=== PATIENT | male | born 1945 | race Caucasian/White ===

== ENCOUNTER 2017-07-08 17:40 | Inpatient (IN) ==
--- NOTE | 2017-07-08 18:16 | Emergency Department Note ---
IJanusz Rolonda, am scribing for, and in the presence of, Ely Ramírez DO 18: 08. IDarrell Debra, DO, personally performed the services described in this documentation, ascribed by Lashell Boudreaux in my presence, and it is both accurate and complete 816 . Arrival - Arrival Chief Complaint: Chest Pain Stated Complaint: chest pain ED Nursing Triage Note: c/o chest pain. Patient states he gets sob when he walks. He states he was working this morning and his chest started hurting. He took 3 Nitros that helped with the chest pain. Patient states his chest is hurting a little bit right now. Patient states his arms get heavy like. Patient denies any diaphoresis. Mode of Arrival: Ambulatory Limitations: No Limitations Source: Patient, Old Records Reviewed, RN Notes Reviewed Time Seen by Provider: 07/08/17 17:53 - History of Present Illness HPI Narrative: Pt is a 72 y/o male who presents to the ED for further evaluation of CP with an onset of 0100 today. Pt has a PMHx of [place], HTN, CAD, CVA and Stents x2. pt states that he was at work this morning when the CP developed. He states that the pain was 5/10 which has now gotten better and is a 3/10. Pt states that he took 3 NTG with relief. He confirms SOB with exertion and vertigo but denies N/ V and radiating pain. No other complaint/pain in ED. Onset (ago): hour(s) Consistency: constant Severity: mild Severity scale (1-10): 3 Allergies/Adverse Reactions: Allergies Allergy/AdvReac Type Severity Reaction Status Date / Time butorphanol [From Stadol] Allergy Unknown SHORTNESS Verified 07/08/17 17:47 OF BREATH Home Medications: Home Medications Medication Instructions Recorded Confirmed Type Atorvastatin [Lipitor] 40 mg PO BEDTIME 09/12/15 05/20/16 History Lisinopril 20 mg PO DAILY 09/12/15 05/20/16 History Nitroglycerin Sl Tab [Nitrostat] 0.4 mg SL Q5M PRN 09/12/15 05/20/16 History Clopidogrel [Plavix] 75 mg PO DAILY tablet 02/22/16 05/20/16 Rx Metoprolol Succinate Xl [Toprol Xl] 50 mg PO DAILY #30 tablet 02/22/16 05/20/16 Rx Sertraline [Zoloft] 25 mg PO BEDTIME 05/20/16 05/20/16 History Isosorbide Mononitrate [Imdur] 30 mg PO DAILY #30 tablet 05/25/16 Rx Nitroglycerin Sl Tab [Nitrostat] 0.4 mg SL Q5M PRN #25 tablet 05/25/16 Rx Rivaroxaban [Xarelto] 20 mg PO DAILY W/BREAKFAST #30 05/25/16 Rx tablet Review of System - Review of System 12 point system: reviewed and no additional remarkable complaints except as stated - Review of System Constitutional: Absent: chills Eyes: Absent: discharge Head/Ears/Nose/Throat: Absent: earache Respiratory: Present: respiratory distress (SOB). Absent: cough Cardiovascular: Present: chest pain Gastrointestinal: Absent: abdominal pain Genitourinary male: Absent: dysuria Musculoskeletal: Absent: arm pain, back pain Skin: Absent: rash Neurological: Present: vertigo. Absent: headache Psychiatric: Absent: anxiety Endocrine: Absent: cold intolerance Hematological/Lymphatic: Absent: easy bleeding Allergic/Immunologic: Absent: facial swelling Medical,Surgical,& Family Hx - Medical History Cardio: History of: CAD, Hypertension, [place] Neurology: History of: Cerebrovascular Accident No history of: Seizures Endocrine: History of: Dyslipidemia Genitourinary: History of: Kidney Stones, Prostate Problems (Prostate CA), Genitourinary Cancer (Prostate CA) Other: History of: Anaphylaxis, Cancer - Surgical History Cardiac Surgeries: Sugical HX of: Cardiac Catheterization, Cardiac Surgery ( Stents x2) Thoracic Surgeries: Surgical HX of;: Lithotripsy Patient denies;: Lobectomy Abdominal Surgeries: Surgical HX of: Appendectomy, Cholecystectomy Reproductive Surgeries: Surgical HX of;: Prostate Surgery (Biopsy) - Family History Family History: Reports;: Family Diabetes, Family Heart Disease - Social History Smoking Status: Former smoker Frequency of Alcohol Use: None Type of Drug Use: None Exam Vital Signs: Vital Signs Temperature 97.6 F 07/08/17 18:31 Pulse Rate 84 07/08/17 18:31 Respiratory Rate 18 07/08/17 18:31 Blood Pressure 158/90 07/08/17 18:31 O2 Sat by Pulse Oximetry 98 07/08/17 17:42 - General General appearance: alert, in no apparent distress, anxious (mildly) - Head Head exam: Present: atraumatic, normocephalic - Eye Eye exam: Present: PERRL, EOMI - ENT ENT exam: Present: mucous membranes moist. Absent: mucous membranes dry - Neck Neck exam: Present: full ROM. Absent: tenderness - Chest Chest inspection: Present: symmetric chest wall rise. Absent: tenderness - Respiratory Respiratory exam: Present: normal lung sounds bilaterally. Absent: wheezes - Cardiovascular Cardiovascular exam: Present: regular rate, normal rhythm, normal heart sounds. Absent: bradycardia - Abdominal Exam Abdominal exam: Present: soft, distention, normal bowel sounds. Absent: tenderness - Extremities Exam Extremities exam: Present: full ROM. Absent: tenderness - Back Exam Back exam: Present: full ROM. Absent: tenderness - Neurological Exam Neurological exam: Present: alert, oriented X3, CN II-XII intact - Psychiatric Psychiatric exam: Present: normal affect, normal mood - Skin Skin exam: Present: warm, dry, intact, normal color. Absent: rash Course Course Narrative: spoke with Dr Javier who will cath patient tonight. pt notified and cath team called in . Results - Labs CBC & BMP: 07/08/17 18:19 07/08/17 18:19 Lab Results: I have reviewed the patients labs Labs: Laboratory Tests 07/08/17 18:19 WBC 7.7 RBC 3.92 Hgb 12.5 L Hct 35.8 L MCV 91.3 Plt Count 156 Neut % (Auto) 79.5 H Lymph % (Auto) 11.6 L Lymph # (Auto) 0.9 L Laboratory Tests 07/08/17 07/08/17 07/08/17 18:19 18:19 18:19 INR 1.0 PT Patient/Control Mix 10.7 Circ Anticoag PTT 26.8 Sodium 143 Potassium 3.4 L Chloride 111 H Carbon Dioxide 24 BUN 14 Creatinine 1.50 H GFR Calculation 60 Glucose 154 H Calcium 8.3 L AST 23 CK-MB (CK-2) 10.7 H CK and CKMB Interp 3.5 Troponin I 3.460 H B-Natriuretic Peptide 158 H Total Protein 6.2 L - EKG EKG results: interpreted by ERMD - Impressions lbb which was present last EKG, changes noted on leads v4, 5 and 6. - Diagnostic Findings Procedure: Chest x-ray: report reviewed by me (Stable portable chest.) Disposition Clinical Impression: Chest pain Case discussed with: patient, patient's family Disposition: Still a Patient Condition: Stable Additional Instructions: patient will be going to the label rewinder Time of Disposition: 19:13
[2017-07-08 18:26] LABS: Basophils % 0.1 % (0.0-0.8); Eosinophils % 0.3 % (0.00-10.9); Hematocrit 35.8 VOL% (42.0-52.0); Hemoglobin 12.5 GM/DL (14.0-18.0); Immature Granulocytes % 0.3 %; Immature Granulocytes Absolute 0.02 #; Lymphocytes # 0.9 10*3/uL (1.4-4.0); Lymphocytes % 11.6 % (21.2-54.2); Mean Corpuscular HGB Conc 34.9 GM/DL (32-36); Mean Corpuscular Hemoglobin 32 PG (27-34); Mean Corpuscular Volume 91.3 FL (87-102); Mean Platelet Volume 9.8 FL (9.6-12.0); Monocytes # 0.6 10*3/uL (0.11-0.8); Monocytes % 8.2 % (1.7-12.7); Neutrophils # 6.1 10*3/uL (1.4-7.4); Neutrophils % 79.5 % (38.7-73.9); Platelet Count 156 T/CUMM (130-400); Red Blood Count 3.92 MC/CUMM (3.8-5.5); White Blood Count 7.7 T/CUMM (4-12)
--- NOTE | 2017-07-08 18:40 | XRay Report ---
History is chest pain Comparison 11/04/2016 Mediastinal and hilar contours unchanged Small calcified granulomas again seen without congestive failure or confluent infiltrates seen Impression: Stable portable chest PROCEDURE INTERPRETED AT [facility] DEPARTMENT OF RADIOLOGY Final Report Signed by: Dr. Tiffanie Stearns
[2017-07-08 18:41] LABS: PT Patient Result 10.7 SECS; Partial Thromboplastin Time 26.8 SECS (0-40)
[2017-07-08 18:53] LABS: Albumin 3.6 G/DL (3.4-5.0); Bilirubin,Total 0.4 MG/DL (0.2-1.0); CKMB % 3.5 %; Calcium 8.3 MG/DL (8.5-10.1); Potassium 3.4 MMOL/L (3.5-5.1); Total Protein 6.2 G/DL (6.4-8.3)
[2017-07-08 18:57] LABS: Troponin I Only 3.46 NG/ML (0.00-0.045)
[2017-07-08] MEDS ORDERED: ONDANSETRON 4 MG/2 ML VIAL ONE (19:01)
[2017-07-08] MEDS ORDERED: ENOXAPARIN 100 MG/ML SYRINGE SUBCUT ONE (19:01)
[2017-07-08] MEDS ORDERED: MORPHINE 2 MG/1 ML SYRINGE ONE (19:02)
[2017-07-08] MEDS ORDERED: NITROGLYCERIN 2% OINT 1 INCH/GM PACK TOP ONE (19:02)
[2017-07-08] MEDS ORDERED: METOPROLOL TARTRATE 5 MG/5 ML VIAL IV ONE (19:02)
[2017-07-08] MEDS ORDERED: SODIUM CHLORIDE 0.9% 1,000 ML IV ONE (19:10)
[2017-07-08] MEDS ORDERED: CLOPIDOGREL 300 MG TABLET ONE (19:34)
--- NOTE | 2017-07-08 19:48 | Cardiology History & Physical ---
Assessment and Plan - Time spent with patient Time spent with patient: Greater than 30 minutes (Examination discussion documentation chart review film review) (1) Non-ST elevation myocardial infarction (NSTEMI) Status: Acute Current Visit: Yes (2) Post-infarction angina Status: Acute Current Visit: Yes (3) Paroxysmal atrial fibrillation Status: Resolved Current Visit: Yes (4) Anemia Status: Acute Current Visit: Yes (5) Hypokalemia Status: Acute Current Visit: Yes (6) Hypertension Status: Chronic Current Visit: Yes Qualifiers: Hypertension type: essential hypertension Qualified Code(s): I10 - Essential (primary) hypertension (7) Prostate cancer Status: Chronic Current Visit: No (8) Anxiety Status: Chronic Current Visit: No (9) Coronary artery disease Status: Chronic Current Visit: No (10) Dyslipidemia Status: Chronic Current Visit: No (11) History of coronary artery stent placement Status: Chronic Current Visit: No History of Present Illness Chief complaint: Chest pain History of present illness: Mr. Burr is a 72 year old male with known coronary artery disease and previous PCI of the RCA has an abnormal takeoff. He also has a history of paroxysmal atrial fibrillation. He is currently in normal sinus rhythm with his chronic left bundle branch block the patient has been experiencing progressive dyspnea and having to stop after a few moments over the last several weeks today he began having substernal chest discomfort at 1 PM. He took some nitro and it went away and came it was as much as 7 out of 10 at that time and it came back to 2 out of 10 and subsequent came to the emergency room to be evaluated he was found to have a creatinine of 1.5 and elevated cardiac biomarkers consistent with myocardial ischemia. He has a chronic left bundle branch block that does not seem significantly changed. Despite nitrates and morphine he continued to have stuttering chest discomfort. When I evaluated the emergency room he was actually pain-free but this was only momentarily after some morphine injection. The patient has known coronary disease and is been cathed here in intervened with RCA he also has intervention at [facility] in the past I do not have those films. The patient has been on clopidogrel therapy but it is unclear if he has been compliant with this he has a significant amount of difficulty keeping up with his medications. I reviewed a medication list in the emergency room has many marked reason changes. He has not been on anticoagulation for his atrial fibrillation was on Xarelto for a period. I discussed with the patient about left heart catheterization selective coronary angiography and possible percutaneous intervention with his , son and [id number] present. He wishes to proceed. The [employer] staff has been called back for urgent left heart catheterization for post infarct angina. Home Medications Medication Instructions Recorded Confirmed Type Atorvastatin [Lipitor] 40 mg PO BEDTIME 09/12/15 05/20/16 History Lisinopril 20 mg PO DAILY 09/12/15 05/20/16 History Nitroglycerin Sl Tab [Nitrostat] 0.4 mg SL Q5M PRN 09/12/15 05/20/16 History Clopidogrel [Plavix] 75 mg PO DAILY tablet 02/22/16 05/20/16 Rx Metoprolol Succinate Xl [Toprol Xl] 50 mg PO DAILY #30 tablet 02/22/16 05/20/16 Rx Sertraline [Zoloft] 25 mg PO BEDTIME 05/20/16 05/20/16 History Isosorbide Mononitrate [Imdur] 30 mg PO DAILY #30 tablet 05/25/16 Rx Nitroglycerin Sl Tab [Nitrostat] 0.4 mg SL Q5M PRN #25 tablet 05/25/16 Rx Rivaroxaban [Xarelto] 20 mg PO DAILY W/BREAKFAST #30 05/25/16 Rx tablet Allergies Allergy/AdvReac Type Severity Reaction Status Date / Time butorphanol [From Stadol] Allergy Unknown SHORTNESS Verified 07/08/17 17:47 OF BREATH - Constitutional Constitutional: Absent: anorexia, chills - EENT Eyes: Absent: diplopia Ears: Absent: decreased hearing Nose, mouth and throat: Absent: dysphagia, epistaxis, nasal congestion - Cardiovascular Cardiovascular: Present: chest pain at rest, chest pain with activity, dyspnea, dyspnea on exertion. Absent: edema, orthopnea, palpitations - Respiratory Respiratory: Present: dyspnea, dyspnea on exertion - Gastrointestinal Gastrointestinal: Absent: bloating, change in bowel habits, dyspepsia, dysphagia - Genitourinary Genitourinary: Absent: difficulty urinating, hematuria - Musculoskeletal Musculoskeletal: Present: back pain, muscle weakness, myalgias. Absent: arthralgias - Neurological Neurological: Absent: abnormal gait, abnormal speech - Psychiatric Psychiatric: Present: anxiety. Absent: depression - Endocrine Endocrine: Absent: cold intolerance, heat intolerance - Hematologic/Lymphatic Hematologic/Lymphatic: Absent: easy bleeding, easy bruising Medical,Surgical,& Family Hx - Medical History Cardio: History of: Cardiac Dysrhythmia (Paroxysmal atrial fibrillation), CAD, Hypertension, [place] Psychological: History of: Anxiety Disorders Neurology: History of: Cerebrovascular Accident No history of: Seizures Endocrine: History of: Dyslipidemia Genitourinary: History of: Kidney Stones, Prostate Problems (Prostate CA), Genitourinary Cancer (Prostate CA) Other: History of: Anaphylaxis, Cancer - Surgical History Cardiac Surgeries: Sugical HX of: Cardiac Catheterization, Cardiac Surgery ( Stents x2) Thoracic Surgeries: Surgical HX of;: Lithotripsy Patient denies;: Lobectomy Abdominal Surgeries: Surgical HX of: Appendectomy, Cholecystectomy Reproductive Surgeries: Surgical HX of;: Prostate Surgery (Biopsy) - Family History Family History: Reports;: Family Diabetes, Family Heart Disease - Social History Smoking Status: Former smoker Frequency of Alcohol Use: None Type of Drug Use: None Marital Status: Lives With:: Spouse Functional capacity: independent ambulation Cardiology Physical Exam - Constitutional Vitals: Vital Signs Temp Pulse Resp BP Pulse Ox 97.6 F 84 18 158/90 98 07/08/17 18:31 07/08/17 18:31 07/08/17 18:31 07/08/17 18:31 07/08/17 17:42 Intake and Output 07/08/17 07/08/17 07/08/17 07:59 15:59 23:59 Other: Weight 102.058 kg Patient Weight 07/08/17 23:59 Weight 102.058 kg General appearance: normal weight - Head Head exam: Present: normal inspection - Eye Eye exam: Present: EOMI Pupils: Present: [place] - ENT ENT exam: Present: normal exam - Neck Neck exam: Present: normal inspection - Respiratory Respiratory exam: Present: clear to auscultation bilaterally - Cardiovascular Cardiovascular exam: Present: regular rate and rhythm (Paradoxically split second heart sound no murmur) - GI/Abdominal GI/Abdominal exam: Present: normal bowel sounds - Extremities Exam Extremities exam: Present: normal inspection - Back Exam Back exam: Present: normal inspection - Neurological Exam Neurological exam: Present: alert, oriented X3 - Psychiatric Psychiatric exam: Present: normal affect - Skin Skin exam: Present: normal color, warm Result/EKG - Labs CBC & BMP: 07/08/17 18:19 07/08/17 18:19 Labs: Laboratory Results - last 24 hr 07/08/17 07/08/17 07/08/17 18:19 18:19 18:19 WBC 7.7 RBC 3.92 Hgb 12.5 L Hct 35.8 L MCV 91.3 MCH 32 MCHC 34.9 RDW 13.0 Plt Count 156 MPV 9.8 Neut % (Auto) 79.5 H Lymph % (Auto) 11.6 L [place] % (Auto) 8.2 Eos % (Auto) 0.3 Baso % (Auto) 0.1 Neut # (Auto) 6.1 Lymph # (Auto) 0.9 L [place] # (Auto) 0.6 Eos # (Auto) 0.0 Baso # (Auto) 0.0 Immature Gran % 0.3 Nucleated RBC % 0.0 Immature Gran # 0.02 Nucleated RBCs # 0.00 Immature Plt Fraction 0.0 INR 1.0 PT Patient/Control Mix 10.7 Circ Anticoag PTT 26.8 Sodium 143 Potassium 3.4 L Chloride 111 H Carbon Dioxide 24 Anion Gap 11.4 BUN 14 Creatinine 1.50 H GFR Calculation 60 BUN/Creatinine Ratio 9.00 Glucose 154 H Calculated Osmolality 288.0 Calcium 8.3 L Total Bilirubin 0.40 AST 23 ALT 21 Alkaline Phosphatase 91 Total Creatine Kinase 308 CK-MB (CK-2) 10.7 H CK and CKMB Interp 3.5 Troponin I 3.460 H B-Natriuretic Peptide Total Protein 6.2 L Albumin 3.6 Globulin 2.6 Albumin/Globulin Ratio 1.3 07/08/17 18:19 WBC RBC Hgb Hct MCV MCH MCHC RDW Plt Count MPV Neut % (Auto) Lymph % (Auto) [place] % (Auto) Eos % (Auto) Baso % (Auto) Neut # (Auto) Lymph # (Auto) [place] # (Auto) Eos # (Auto) Baso # (Auto) Immature Gran % Nucleated RBC % Immature Gran # Nucleated RBCs # Immature Plt Fraction INR PT Patient/Control Mix Circ Anticoag PTT Sodium Potassium Chloride Carbon Dioxide Anion Gap BUN Creatinine GFR Calculation BUN/Creatinine Ratio Glucose Calculated Osmolality Calcium Total Bilirubin AST ALT Alkaline Phosphatase Total Creatine Kinase CK-MB (CK-2) CK and CKMB Interp Troponin I B-Natriuretic Peptide 158 H Total Protein Albumin Globulin Albumin/Globulin Ratio - EKG EKG results: interpreted by me (Left bundle branch block)
--- NOTE | 2017-07-08 19:51 | History and Physical Update ---
Sedation H&P Update - History and Physical H&P was reviewed, the patient examined and there: are no changes in the patients condition since last H&P was completed. - Dictation Physical: refer to H&P completed by admitting physician - Physical Exam Mental Status: alert and oriented Heart: regular rate and rhythm Lung: clear to auscultation Abdomen: within normal limits Vitals: within normal limits - Sedation Plan for Sedation: moderate Patient Consent: Procedure disscussed with patient and patinet has consented., Risks and benefits were discussed with patient,including infection,, bleeding, injury to surrounding structures, seizure, temporary nerve, Patient understands and accepts potential risks/benefits and agrees to, proceed. ASA Class: III Airway Assessment: Class III: Soft palate, base of uvula visible
[2017-07-08] MEDS ORDERED: HEPARIN/NACL 0.9% 2 UNITS/ML 1,000 ML IV ONE (19:55)
[2017-07-08] MEDS ORDERED: MIDAZOLAM 2 MG/2 ML VIAL ONE ×2 (19:55→20:47)
[2017-07-08] MEDS ORDERED: LIDOCAINE 1% 20 ML VIAL ONE (19:55)
[2017-07-08] MEDS ORDERED: fentaNYL 100 MCG/2 ML VIAL ONE (19:55)
[2017-07-08] MEDS ORDERED: METOPROLOL TARTRATE 5 MG/5 ML VIAL IV STA (19:56)
[2017-07-08] MEDS ORDERED: ONDANSETRON 4 MG/2 ML VIAL IV STA (19:56)
[2017-07-08] MEDS ORDERED: MORPHINE 2 MG/1 ML SYRINGE IV STA (19:56)
[2017-07-08] MEDS ORDERED: NITROGLYCERIN 2% OINT 1 INCH/GM PACK TOP STA (19:56)
[2017-07-08] MEDS ORDERED: ENOXAPARIN 100 MG/ML SYRINGE SUBCUT STA (19:56)
[2017-07-08] MEDS ORDERED: CLOPIDOGREL 300 MG TABLET PO STA (19:58)
[2017-07-08] MEDS ORDERED: ACETAMINOPHEN 325 MG TABLET PO PRN ×2 (20:56→22:12)
[2017-07-08] MEDS ORDERED: MORPHINE 2 MG/1 ML SYRINGE IV PRN ×2 (20:56→22:12)
[2017-07-08] MEDS ORDERED: FUROSEMIDE 40 MG/4 ML VIAL ONE (20:57)
[2017-07-08] MEDS ORDERED: POTASSIUM CHLORIDE RIDER 100 ML IV ONE (20:57)
[2017-07-08] MEDS ORDERED: ATORVASTATIN 40 MG TABLET PO SCH (21:00)
[2017-07-08] MEDS ORDERED: POTASSIUM CHLORIDE 20 MEQ TABLET PO SCH ×2 (21:00→22:30)
[2017-07-08] MEDS ORDERED: FAMOTIDINE 20 MG TABLET PO SCH (21:00)
[2017-07-08] MEDS ORDERED: POTASSIUM CHLORIDE RIDER 10 MEQ in PREMIX 1 EACH IV ONE (21:02)
[2017-07-08] MEDS ORDERED: POTASSIUM CHLORIDE 20 MEQ TABLET PO ONE ×2 (21:08)
[2017-07-08] MEDS ORDERED: ZOLPIDEM 5 MG TABLET PO PRN (21:08)
--- NOTE | 2017-07-08 21:21 | Cardiac Catheterization ---
Date of Procedure:: 07/08/17 Pre-op Diagnosis: Post infarct angina with chronic left bundle branch block and elevated troponin and chest pain Post-op diagnosis: other (Nonischemic cardiomyopathy, decompensated and coronary artery disease) Procedure: Procedures: 1. Left heart catheterization resting hemodynamics 2. Left ventriculography 3. Selective left and right coronary angiography 4. Percutaneous coronary mention of the distal LAD with a 2.5 x 12 mm Synergy drug-eluting stent 5. Right femoral iliac angiography 6. Closure right femoral arteriotomy with minx closure device After consent was taken from the patient. Taken to the catheterization lab for left heart catheterization via the femoral artery. Time out was taken and recorded. 1% lidocaine was infiltrated in the skin and subcutaneous tissue overlying the right femoral artery. Modified Seldinger technique and an 18- gauge Cook needle was used for access to the right femoral artery. An 0.35 J- wire was advanced through the needle into the central aorta under fluoroscopy. A small skin was made and a 6 Vietnamese sheath was placed over the wire. The sheath was aspirated and flushed. A JL46 was advanced over the wires in the left main coronary artery was selectively engaged. Multiple orthogonal views of the left system were obtained. The catheter was then exchanged over the wire. The sheath was aspirated and flushed. A JR4 catheter was advanced over the wire into the central aorta. The right coronary was selectively engaged and orthogonal views of the right coronary artery were obtained. The catheter was then exchanged over the wire, the sheath was aspirated and flushed. At this time an angled pigtail catheter was advanced across the aortic valve into the ventricle. Pressure measurements were obtained and a cine ventriculogram was performed in the SUN projection with 10 mL of contrast. Pullback measurements were performed. The wired music operator reviewed the films. There is no clear identifiable lesion there is diminished flow in all segments of the ventricular myocardium there was a hazy area in the distal left anterior descending artery and also moderate disease in the first diagonal. The flow seem to be more sluggish and a MAREK I- II fashioned after the hazy area in the mid LAD and it was felt that this was possibly a culprit. It clearly did not explain his decompensated cardiomyopathy. It was felt given the presentation that this was likely the nidus of the patient's pain. Therefore decision was made to stent the vessel. The patient received 100 mg of subcu Lovenox an additional 300 mg loading Plavix in the emergency room. The room set up for the intervention mode and 2 catheters were used unsuccessfully to engage the left main they were the EBU 3.5 and EBU 4 and EBU 4.5. Ultimately a simple JR4 guide was used quickly a 180 cm [employer]uld[employer] water wire was advanced into the distal LAD followed by 2.5 x 12 mm Synergy drug-eluting stent that was postdilated to nominal atmospheres. There was a stepup and stepdown on both sides of the vessel and postdilatation was not felt to be necessary. There is excellent angiographic result there was slight improvement in the patient's MAREK flow in this vessel. The wire was removed to orthogonal views were obtained. There is no apparent complication The sheath was aspirated and flushed and a right femoral and iliac angiography was performed. The access site was amenable for closure and the area was reprepped with ChloraPrep and draped with sterile towels. The Mynx closure device was used in standard technique. There was no hematoma and distal pulse were good. Total fluoroscopy time 11.1 minutes total fluoroscopy dose 798 mGy total contrast 150 cc of Omnipaque FINDINGS: LV: 115/19 LVEDP: 34 Ao:115/79 EF: Ejection fraction of 10% there is severe hypokinesis or akinesis in all distal segments. There is no mitral regurgitation there is no gradient across the valve and pullback LM: Angiographically normal LAD: This is a long vessel that reaches the apex of ventricular myocardium there is a hazy area approximately 70% in the distal vessel. There is MAREK II flow distal to this. Post PCI there is improvement in flow but still is not normal breast MAREK-3 flow but the area stented looks better. There is one view that looked like it was up to 70% the whole area was hazy. There is a first diagonal it has moderate to severe 70% stenosis throughout its course in the proximal segment. The previously deployed stents in the proximal segment are widely patent. LCx: This is a condominant vessel there is approximately 50-60% stenosis in the distal AV groove portion of the left circumflex. RCA: This vessel is dominant has a downward takeoff previously deployed stents are widely patent. There are mild luminal irregularities in the distal vessel RFA/DISHA: Right femoral iliac arteries are normal Assessment: 1. Acutely decompensated nonischemic cardiomyopathy with a left ventricular end -diastolic pressure of 34 mmHg 2. Acute coronary syndrome and chest pain with elevated troponin chronic left bundle branch block and moderate to high-grade disease in the distal LAD status post PCI that is felt not to be contributing to his cardiomyopathy and it is unclear whether this is the culprit vessel. This lesion revascularized would not explain his degree of cardiomyopathy. This is clearly nonischemic cardiomyopathy and coronary artery disease. Not ischemic cardiomyopathy. 3. History of atrial fibrillation with none documented in a significant amount of time ( several months) 4. Chronic left bundle branch block PLAN: 1. Monitored in the ICU with diuresis 2. Correct electrolyte abnormalities 3. Beta-lexis VLADIMIR inhibitor statin and dual antiplatelet therapy for minimum of 1 year 4. Consult EP for CRTD as soon as allowable 5. Discharge home with LifeVest 6. I long discussion with the patient's family and the brief discussion with him about the gravity of the situation he has a very poor prognosis if we cannot reverse his cardiomyopathy and heart failure soon. He is in guarded condition at this time. Implants: 2.5 x 12 mm Synergy drug-eluting stent Anesthesia: moderate conscious sedation Surgeon / Physician: Sarah Javier Branch Controller: none Estimated blood loss: none Specimens: none sent Condition: stable Disposition: ICU/CCU - Discharge Disposition: Still a Patient - Medications / Follow-up
[2017-07-08] MEDS ORDERED: MAGNESIUM OXIDE 400 MG TABLET PO SCH (21:30)
[2017-07-08] MEDS ORDERED: ONDANSETRON 4 MG/2 ML VIAL IV PRN (22:43)
[2017-07-09] MEDS: POTASSIUM CHLORIDE 20 MEQ TABLET PO SCH ×3 (00:06→20:31)
[2017-07-09] MEDS ORDERED: MAGNESIUM OXIDE 400 MG TABLET PO ONE (01:00)
[2017-07-09] MEDS ORDERED: FAMOTIDINE 20 MG TABLET PO ONE (01:00)
[2017-07-09] MEDS ORDERED: ATORVASTATIN 80 MG TABLET PO ONE (01:00)
[2017-07-09] MEDS: ZALEPLON 5 MG CAPSULE PO PRN ×2 (03:51→20:32)
--- NOTE | 2017-07-09 07:21 | Cardiology Progress Note ---
Assessment and Plan (1) Paroxysmal atrial fibrillation Status: Resolved Current Visit: Yes (2) Anemia Status: Acute Current Visit: Yes (3) Hypokalemia Status: Acute Current Visit: Yes (4) Hypertension Status: Chronic Current Visit: Yes Qualifiers: Hypertension type: essential hypertension Qualified Code(s): I10 - Essential (primary) hypertension (5) Prostate cancer Status: Chronic Current Visit: No (6) Anxiety Status: Chronic Current Visit: No (7) Coronary artery disease Status: Chronic Current Visit: No Qualifiers: Coronary Disease-Associated Artery/Lesion type: [place] artery [place] vs. transplanted heart: [place] heart Associated angina: with unstable angina Qualified Code(s): I25.110 - Atherosclerotic heart disease of [place] coronary artery with unstable angina pectoris (8) Dyslipidemia Status: Chronic Current Visit: No (9) History of coronary artery stent placement Status: Chronic Current Visit: No (10) Nonischemic cardiomyopathy Status: Acute Current Visit: Yes (11) Left bundle branch block (LBBB) on electrocardiogram Status: Chronic Current Visit: Yes Cardiology - PN: Subj Interval history: Mr. Burr is lying flat in the bed he has not had any more chest pain his nausea resolved. I think this was medication related. I discussed with him about the findings of his low EF. His labs are pending this morning. His ejection fraction in April in the office was 55% and now stent around 10 with distal anterior apical and inferior hypokinesis. The change in his ejection fraction seems rather abrupt to be explained by his left bundle branch block he must consider other etiologies. His LAD was stented last night and hazy area because of diminished flow in chest pain but I am not sure that this was the etiology of his chest pain. I am sure that it did not cause his low EF. He is diuresed well overnight he is slightly negative and the nurses report that his is disposed of significant amount of urine that was not measured. His labs are pending this morning I will empirically add Aldactone in anticipation that his creatinine will be hopefully no worse than it was yesterday his potassium has been low we will be cautious watching his potassium and his creatinine his creatinine was 1.5 his potassium was 3.4 admission we aggressively repleted but also aggressively diuresed. I have consulted EP, I would like if at all possible for him to get BROWNFIELD PROGRAM COORDINATOR-D as soon as possible Exam (Progress Note) - Constitutional Vitals: Period Temp Pulse Resp BP Sys/May Pulse Ox Last 24 Hr 97.4 F-98.8 F 56-84 10-18 102-158/59-90 94-98 General appearance: normal weight - Head Head exam: Present: normal inspection - Eye Eye exam: Present: EOMI Pupils: Present: [place] - Respiratory Respiratory exam: Present: clear to auscultation bilaterally - Cardiovascular Cardiovascular exam: Present: regular rate and rhythm (PMI is laterally displaced I do not hear a gallop at this time he has a paradoxically split second heart sounds times are very quiet) - GI/Abdominal GI/Abdominal exam: Present: normal bowel sounds - Extremities Exam Extremities exam: Present: other (Cath site looks good) - Back Exam Back exam: Present: normal inspection - Neurological Exam Neurological exam: Present: alert, oriented X3 - Psychiatric Psychiatric exam: Present: normal affect, normal mood - Skin Skin exam: Present: normal color, warm, dry Result/EKG - Labs CBC & BMP: 07/08/17 18:19 07/08/17 18:19 Labs: Laboratory Results - last 24 hr 07/08/17 07/08/17 07/08/17 18:19 18:19 18:19 WBC 7.7 RBC 3.92 Hgb 12.5 L Hct 35.8 L MCV 91.3 MCH 32 MCHC 34.9 RDW 13.0 Plt Count 156 MPV 9.8 Neut % (Auto) 79.5 H Lymph % (Auto) 11.6 L [place] % (Auto) 8.2 Eos % (Auto) 0.3 Baso % (Auto) 0.1 Neut # (Auto) 6.1 Lymph # (Auto) 0.9 L [place] # (Auto) 0.6 Eos # (Auto) 0.0 Baso # (Auto) 0.0 Immature Gran % 0.3 Nucleated RBC % 0.0 Immature Gran # 0.02 Nucleated RBCs # 0.00 Immature Plt Fraction 0.0 INR 1.0 PT Patient/Control Mix 10.7 Circ Anticoag PTT 26.8 Sodium 143 Potassium 3.4 L Chloride 111 H Carbon Dioxide 24 Anion Gap 11.4 BUN 14 Creatinine 1.50 H GFR Calculation 60 BUN/Creatinine Ratio 9.00 Glucose 154 H Calculated Osmolality 288.0 Calcium 8.3 L Total Bilirubin 0.40 AST 23 ALT 21 Alkaline Phosphatase 91 Total Creatine Kinase 308 CK-MB (CK-2) 10.7 H CK and CKMB Interp 3.5 Troponin I 3.460 H B-Natriuretic Peptide Total Protein 6.2 L Albumin 3.6 Globulin 2.6 Albumin/Globulin Ratio 1.3 07/08/17 18:19 WBC RBC Hgb Hct MCV MCH MCHC RDW Plt Count MPV Neut % (Auto) Lymph % (Auto) [place] % (Auto) Eos % (Auto) Baso % (Auto) Neut # (Auto) Lymph # (Auto) [place] # (Auto) Eos # (Auto) Baso # (Auto) Immature Gran % Nucleated RBC % Immature Gran # Nucleated RBCs # Immature Plt Fraction INR PT Patient/Control Mix Circ Anticoag PTT Sodium Potassium Chloride Carbon Dioxide Anion Gap BUN Creatinine GFR Calculation BUN/Creatinine Ratio Glucose Calculated Osmolality Calcium Total Bilirubin AST ALT Alkaline Phosphatase Total Creatine Kinase CK-MB (CK-2) CK and CKMB Interp Troponin I B-Natriuretic Peptide 158 H Total Protein Albumin Globulin Albumin/Globulin Ratio - Impressions Impressions: Labs this morning are still pending - EKG EKG results: interpreted by me (Normal sinus rhythm left bundle branch block no ventricular ectopy) Quality Measures - VTE Contraindication to Pharmacological VTE Prophylaxis: High Risk of Bleeding
[2017-07-09 07:56] LABS: Basophils % 0.4 % (0.0-0.8); Eosinophils % 0.4 % (0.00-10.9); Hematocrit 36.2 VOL% (42.0-52.0); Hemoglobin 12.8 GM/DL (14.0-18.0); Immature Granulocytes % 0.4 %; Immature Granulocytes Absolute 0.02 #; Lymphocytes # 1.1 10*3/uL (1.4-4.0); Lymphocytes % 19.7 % (21.2-54.2); Mean Corpuscular HGB Conc 35.4 GM/DL (32-36); Mean Corpuscular Hemoglobin 32 PG (27-34); Mean Corpuscular Volume 91.4 FL (87-102); Mean Platelet Volume 10.1 FL (9.6-12.0); Monocytes # 0.5 10*3/uL (0.11-0.8); Monocytes % 9.2 % (1.7-12.7); Neutrophils # 3.9 10*3/uL (1.4-7.4); Neutrophils % 69.9 % (38.7-73.9); Platelet Count 150 T/CUMM (130-400); Red Blood Count 3.96 MC/CUMM (3.8-5.5); Red Cell Distribution Width 13.2 % (9.3-17.3); White Blood Count 5.5 T/CUMM (4-12)
[2017-07-09] MEDS ORDERED: FUROSEMIDE 40 MG/4 ML VIAL IV SCH (08:00)
--- NOTE | 2017-07-09 08:15 | EKG Report ---
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
--- NOTE | 2017-07-09 08:16 | EKG Report ---
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
[2017-07-09 08:27] LABS: Calcium 8.3 MG/DL (8.5-10.1); Magnesium 1.8 MG/DL (1.8-2.4); Osmolality,Calculated 283.1 MOS/KG (273-304); Potassium 4.2 MMOL/L (3.5-5.1)
[2017-07-09 08:28] LABS: Troponin I Only 2.31 NG/ML (0.00-0.045)
[2017-07-09] MEDS ORDERED: CLOPIDOGREL 75 MG TABLET PO SCH (09:00)
[2017-07-09] MEDS ORDERED: AMIODARONE 200 MG TABLET PO SCH (09:00)
[2017-07-09] MEDS ORDERED: LISINOPRIL 20 MG TABLET PO SCH (09:00)
[2017-07-09] MEDS ORDERED: ASPIRIN EC 81 MG TABLET PO SCH (09:00)
[2017-07-09] MEDS: CLOPIDOGREL 75 MG TABLET PO SCH (09:31)
[2017-07-09] MEDS: LISINOPRIL 20 MG TABLET PO SCH (09:32)
[2017-07-09] MEDS: ASPIRIN EC 81 MG TABLET PO SCH (09:32)
[2017-07-09] MEDS: MAGNESIUM OXIDE 400 MG TABLET PO SCH ×2 (09:33→20:32)
[2017-07-09] MEDS: FAMOTIDINE 20 MG TABLET PO SCH ×2 (09:33→20:31)
[2017-07-09] MEDS: SPIRONOLACTONE 25 MG TABLET PO SCH (09:34)
[2017-07-09] MEDS: AMIODARONE 200 MG TABLET PO SCH (09:34)
[2017-07-09] MEDS: FUROSEMIDE 40 MG/4 ML VIAL IV SCH ×2 (09:35→17:26)
[2017-07-09] MEDS ORDERED: LORazepam 2 MG/1 ML VIAL IV ONE (15:12)
[2017-07-09] MEDS: CLORAZEPATE 3.75 MG TABLET PO PRN (20:31)
[2017-07-09] MEDS: ATORVASTATIN 40 MG TABLET PO SCH (20:31)
[2017-07-10 05:04] LABS: Basophils % 0.5 % (0.0-0.8); Eosinophils # 0.1 10*3/uL (0.0-0.87); Eosinophils % 1.9 % (0.00-10.9); Hematocrit 36.4 VOL% (42.0-52.0); Hemoglobin 13.1 GM/DL (14.0-18.0); Immature Granulocytes % 0.5 %; Immature Granulocytes Absolute 0.03 #; Lymphocytes # 1.3 10*3/uL (1.4-4.0); Lymphocytes % 20.7 % (21.2-54.2); Mean Corpuscular Hemoglobin 33 PG (27-34); Mean Corpuscular Volume 92.2 FL (87-102); Mean Platelet Volume 10.5 FL (9.6-12.0); Monocytes # 0.7 10*3/uL (0.11-0.8); Monocytes % 10.7 % (1.7-12.7); Neutrophils # 4.1 10*3/uL (1.4-7.4); Neutrophils % 65.7 % (38.7-73.9); Platelet Count 158 T/CUMM (130-400); Red Blood Count 3.95 MC/CUMM (3.8-5.5); Red Cell Distribution Width 13.4 % (9.3-17.3); White Blood Count 6.3 T/CUMM (4-12)
[2017-07-10 05:48] LABS: Calcium 8.4 MG/DL (8.5-10.1); Osmolality,Calculated 283.3 MOS/KG (273-304); Potassium 4.2 MMOL/L (3.5-5.1)
[2017-07-10] MEDS: LISINOPRIL 20 MG TABLET PO SCH (08:10)
[2017-07-10] MEDS: CLOPIDOGREL 75 MG TABLET PO SCH (08:11)
[2017-07-10] MEDS: SPIRONOLACTONE 25 MG TABLET PO SCH (08:11)
[2017-07-10] MEDS: POTASSIUM CHLORIDE 20 MEQ TABLET PO SCH ×2 (08:11→20:17)
[2017-07-10] MEDS: ASPIRIN EC 81 MG TABLET PO SCH (08:11)
[2017-07-10] MEDS: FAMOTIDINE 20 MG TABLET PO SCH ×2 (08:12→20:18)
[2017-07-10] MEDS: AMIODARONE 200 MG TABLET PO SCH (08:12)
[2017-07-10] MEDS: FUROSEMIDE 40 MG/4 ML VIAL IV SCH ×2 (08:12→17:12)
[2017-07-10] MEDS: MAGNESIUM OXIDE 400 MG TABLET PO SCH ×2 (08:12→20:17)
--- NOTE | 2017-07-10 08:52 | Cardiology Progress Note ---
<Diana Posada E - Last Filed: 07/10/17 08:32> Assessment and Plan - Time spent with patient Time spent with patient: Greater than 30 minutes (1) Dyslipidemia Status: Chronic Assessment and plan: SEE PLAN OF CARE LISTED BELOW Current Visit: Yes (2) Acute kidney injury Status: Acute Assessment and plan: SEE PLAN OF CARE LISTED BELOW Current Visit: Yes (3) Coronary artery disease Status: Chronic Assessment and plan: SEE PLAN OF CARE LISTED BELOW Current Visit: No Qualifiers: Coronary Disease-Associated Artery/Lesion type: [place] artery [place] vs. transplanted heart: [place] heart Associated angina: with unstable angina Qualified Code(s): I25.110 - Atherosclerotic heart disease of [place] coronary artery with unstable angina pectoris (4) Non-ST elevation myocardial infarction (NSTEMI) Status: Acute Assessment and plan: SEE PLAN OF CARE LISTED BELOW Current Visit: Yes (5) Paroxysmal atrial fibrillation Status: Chronic Assessment and plan: SEE PLAN OF CARE LISTED BELOW Current Visit: Yes (6) Hypertension Status: Chronic Assessment and plan: SEE PLAN OF CARE LISTED BELOW Current Visit: Yes Qualifiers: Hypertension type: essential hypertension Qualified Code(s): I10 - Essential (primary) hypertension (7) Nonischemic cardiomyopathy Status: Acute Assessment and plan: SEE PLAN OF CARE LISTED BELOW Current Visit: Yes (8) Left bundle branch block (LBBB) on electrocardiogram Status: Chronic Assessment and plan: SEE PLAN OF CARE LISTED BELOW Current Visit: Yes Cardiology - PN: Subj Interval history: FURNITURE CLEANER: DR. ARANDA SUMMARY: Mr. Burr, 72WM, has risk factors significant for: known CAD, hypertension, and dyslipidemia. History of PAF with chronic LBBB, TIA maintained on Amiodorone. In the past he has been taking Xarelto for stroke prevention but had been off his anticoagulation for a period of time prior to admission peer admitted July 08, 2017 NSTEMI. He was taken to the cardiac catheterization lab Dr. Aranda performed PCI to the distal LAD with LUIS. He tolerated the procedure well without complication. Patient was found to have EF 10%, Marcaine change from the May 03, 2017 echo which revealed EF of 55%. This is a non-ischemic cardiomyopathy given the location of the stenosis. Dr. Henderson, kickboxing instructor, has been consulted for TREATING PLANT OPERATOR-D as soon as allowable. Also, patient will need LifeVest at discharge. 2016: Mr. Burr denies chest pain, heaviness or tightness. Right groin is soft, free of hematoma or bruit. He has not yet been ambulating and I have asked him to do so this morning. He has had no paroxysms of atrial fibrillation during the hospital stay. Aspirin, Plavix continue. He continues with Lisinopril, lipid-lowering agent and Amiodarone. Creatinine increased overnight from 1.3 to 1.9. Blood pressure and heart rate will not allow for introduction of a beta-lexis. Will consult cardiac rehabilitation today. I personally spoke with Dr. Henderson. Depending on Dr. Henderson's recommendations, will order LifeVest. Hopefully patient will be eligible for discharge tomorrow as we watch his creatinine overnight. Can transfer to telemetry. I will further discuss with Dr. Gee and await additional recommendations. IMPRESSION/PLAN: 1. NSTEMI - status post revascularization to the distal LAD. Continue aspirin and Plavix, VLADIMIR-I. 2. NICM - new diagnosis. EF 10%. April 2017 ejection fraction noted to be 55 % at that time. Dr. Henderson has been consulted and will see patient today 3. CAD -prior history of PCI to the RCA. Now status post PCI to the distal LAD. Continue Aspirin and Plavix, lipid-lowering agent. 4. HYPERTENSION - adequately controlled on VLADIMIR inhibitor. Blood pressure unable to tolerate addition of a beta-lexis 5. DYSLIPIDEMIA - continue high intensity statin 6. PAF - no paroxysms of atrial fibrillation. Continue Amiodarone. May be a candidate for reintroduction of Xarelto at some point. 7. RONNIE -I believe he has a history of mild renal insufficiency. Currently, creatinine has increased to 1.9. Possibly from recent coronary arteriogram. Patient was taking Lisinopril prior to admission, same dose. BMP in the a.m. Exam (Progress Note) - Constitutional Vitals: Period Temp Pulse Resp BP Sys/May Pulse Ox Last 24 Hr 97.2 F-98.5 F 57-76 13-22 92-144/57-76 95-99 Exam: General: [Appears well with no apparent distress.] [Pleasant and cooperative. ] [Appears comfortable.] HEENT: [PERRL, normocephalic, atraumatic. Mucous membranes moist. No jaundice noted. Conjunctiva moist and clear, sclerae anicteric] Neck: No JVD/HJR, no thyromegaly or lymphadenopathy noted. No carotid bruit appreciated Cardiac: [Regular rate and rhythm.] [No murmur rub or gallop.] Lungs: [Clear to auscultation without accessory muscle use to assist the respiratory pattern.] Oxygen in use via nasal cannula Abdomen: Soft, bowel sounds normoactive. Nontender and nondistended. No abdominal bruit or thrill noted. No masses noted. Musculoskeletal: No fluid collection. Decreased range of motion is noted. Extremities: Right groin soft, free of hematoma or bruit. Mildly tender to touch no clubbing, cyanosis noted. [ No edema noted.] Upper extremity pulses 2+ . Lower extremity pulses 2+. Capillary refill less than 3 seconds. Skin: No unusual lesions or rashes. No skin breakdown appreciated. Neuro: Awake, alert and oriented 3. Moves all extremities well without hemiparesis or paralysis. No essential tremor is appreciated. Result/EKG - Labs CBC & BMP: 07/10/17 04:44 07/10/17 04:44 Lab Results: I have reviewed the past 24 hour labs Labs: Laboratory Results - last 24 hr 07/09/17 07/09/17 07/10/17 09:08 12:12 04:44 WBC 6.3 RBC 3.95 Hgb 13.1 L Hct 36.4 L MCV 92.2 MCH 33 MCHC 36.0 RDW 13.4 Plt Count 158 MPV 10.5 Neut % (Auto) 65.7 Lymph % (Auto) 20.[address] [place] % (Auto) 10.7 Eos % (Auto) 1.9 Baso % (Auto) 0.5 Neut # (Auto) 4.1 Lymph # (Auto) 1.[address] [place] # (Auto) 0.7 Eos # (Auto) 0.1 Baso # (Auto) 0.0 Immature Gran % 0.5 Nucleated RBC % 0.0 Immature Gran # 0.03 Nucleated RBCs # 0.00 Immature Plt Fraction 0.0 Sodium Potassium Chloride Carbon Dioxide Anion Gap BUN Creatinine GFR Calculation BUN/Creatinine Ratio Glucose Calculated Osmolality Calcium Magnesium Troponin I 2.410 H 2.510 H 07/10/17 04:44 WBC RBC Hgb Hct MCV MCH MCHC RDW Plt Count MPV Neut % (Auto) Lymph % (Auto) [place] % (Auto) Eos % (Auto) Baso % (Auto) Neut # (Auto) Lymph # (Auto) [place] # (Auto) Eos # (Auto) Baso # (Auto) Immature Gran % Nucleated RBC % Immature Gran # Nucleated RBCs # Immature Plt Fraction Sodium 141 Potassium 4.2 Chloride 107 Carbon Dioxide 26 Anion Gap 12.2 BUN 20 H Creatinine 1.90 H GFR Calculation 45 BUN/Creatinine Ratio 10.00 Glucose 105 Calculated Osmolality 283.3 Calcium 8.4 L Magnesium 2.0 Troponin I - Diagnostic Findings Procedure: Chest x-ray: report reviewed by me - EKG EKG results: interpreted by me EKG shows: sinus rhythm Quality Measures - VTE Contraindication to Pharmacological VTE Prophylaxis: High Risk of Bleeding Specialty Discharge - Follow Up or Referrals <Frank Gee - Last Filed: 07/10/17 12:13> Cardiology - PN: Subj Interval history: Patient personally interviewed and examined chart reviewed. Discussed this case with Diana Posada NP. Agree with the patient's evaluation and assessment and plan. In summation and addition this patient has coronary artery disease with revascularization of the distal LAD this admission for presentation of acute coronary syndrome but with prior RCA intervention with stenting and on catheterization this admission is patent. The patient is having frequent PVCs, has left bundle branch block and ejection fraction 10% that his nonischemic cardiomyopathy. The patient had been having progressive fatigability and dyspnea on exertion for the last 2 months. His other medical issues including his hypertension and dyslipidemia have been stable but I do not see that he has had any lipids carried out this admission. His BUN and creatinine are elevated some. He has lab work ordered already and we will follow-up on this. Dr. Gunter has already consulted Dr. Henderson for evaluation of TREATING PLANT OPERATOR as soon as possible. We will plan on transferring the patient to the floor today in follow-up. I think the LifeVest is appropriate for this patient go home with. Exam (Progress Note) - Constitutional Vitals: Period Temp Pulse Resp BP Sys/May Pulse Ox Last 24 Hr 97.2 F-98.7 F 57-81 12-22 92-144/57-75 95-99 Result/EKG - Labs CBC & BMP: 07/10/17 04:44 07/10/17 04:44 Labs: Laboratory Results - last 24 hr 07/09/17 07/10/17 07/10/17 12:12 04:44 04:44 WBC 6.3 RBC 3.95 Hgb 13.1 L Hct 36.4 L MCV 92.2 MCH 33 MCHC 36.0 RDW 13.4 Plt Count 158 MPV 10.5 Neut % (Auto) 65.7 Lymph % (Auto) 20.[address] [place] % (Auto) 10.7 Eos % (Auto) 1.9 Baso % (Auto) 0.5 Neut # (Auto) 4.1 Lymph # (Auto) 1.[address] [place] # (Auto) 0.7 Eos # (Auto) 0.1 Baso # (Auto) 0.0 Immature Gran % 0.5 Nucleated RBC % 0.0 Immature Gran # 0.03 Nucleated RBCs # 0.00 Immature Plt Fraction 0.0 Sodium 141 Potassium 4.2 Chloride 107 Carbon Dioxide 26 Anion Gap 12.2 BUN 20 H Creatinine 1.90 H GFR Calculation 45 BUN/Creatinine Ratio 10.00 Glucose 105 Calculated Osmolality 283.3 Calcium 8.4 L Magnesium 2.0 Troponin I 2.510 H
--- NOTE | 2017-07-10 15:32 | Electrophysiology Consultation ---
Walt Elliott Vanessa, RN, am scribing for, and in the presence of, Lester Henderson MD 15 :26. History of Present Illness - Data of Consult Patient: known to practice within the last 3 years Consult date: 07/10/17 Requesting Physician: Sarah Javier - Consult Narrative Reason for consult: BOOKKEEPING SERVICE SALES AGENT-D therapy History of present illness: Mr. Burr, 72 year old WM, followed by Dr. Javeir. PMHx hypertension, hyperlipidemia, CAD with PCI, and TIA. He also has history of paroxysmal atrial fibrillation, chronic left bundle branch block. Rhythm control with amiodarone. Has previously been anticoagulated with Xarelto for stroke prevention but has been off of this for greater than 6 months now. Now admitted to [facility] with NSTEMI. Taken urgently to cardiac laborer/key man over weekend due to post infarct angina, underwent stenting of LAD lesion (70%). However, cath findings demonstrate LV EF 10% which is drastically reduced from EF 55% per echo in April 2017, and elevated LVEDP 34 mmHg. Findings suggestive of nonischemic cardiomyopathy as the area and severity of his coronary artery disease do not correlate with the degree of cardiomyopathy. EP consult for BOOKKEEPING SERVICE SALES AGENT- D therapy. career services officer has also been consulted to set up for LifeVest at discharge. Hypertension, well controlled. History of anxiety, stable on Zoloft. Mild CKD , had acute kidney injury on this admission. CC: Sarah Javier, DO - Home Medications and Allergies Home Medications: Home Medications Medication Instructions Recorded Confirmed Type Atorvastatin [Lipitor] 40 mg PO BEDTIME 09/12/15 05/20/16 History Lisinopril 20 mg PO DAILY 09/12/15 05/20/16 History Nitroglycerin Sl Tab [Nitrostat] 0.4 mg SL Q5M PRN 09/12/15 05/20/16 History Clopidogrel [Plavix] 75 mg PO DAILY tablet 02/22/16 05/20/16 Rx Metoprolol Succinate Xl [Toprol Xl] 50 mg PO DAILY #30 tablet 02/22/16 05/20/16 Rx Sertraline [Zoloft] 25 mg PO BEDTIME 05/20/16 05/20/16 History Isosorbide Mononitrate [Imdur] 30 mg PO DAILY #30 tablet 05/25/16 Rx Nitroglycerin Sl Tab [Nitrostat] 0.4 mg SL Q5M PRN #25 tablet 05/25/16 Rx Rivaroxaban [Xarelto] 20 mg PO DAILY W/BREAKFAST #30 05/25/16 Rx tablet Allergies/Adverse Reactions: Allergies Allergy/AdvReac Type Severity Reaction Status Date / Time butorphanol [From Stadol] Allergy Unknown SHORTNESS Verified 07/08/17 17:47 OF BREATH Medical,Surgical,& Family Hx - Medical History Cardio: History of: Cardiac Dysrhythmia (PAF), CAD, Hypertension, [place] No history of: PVD Psychological: History of: Anxiety Disorders Neurology: History of: Cerebrovascular Accident No history of: Seizures Endocrine: History of: Dyslipidemia No history of: Diabetes Mellitus (IDDM), Diabetes Mellitus (NIDDM) Respiratory: No history of: COPD, Obstructive Sleep Apnea Genitourinary: History of: Kidney Stones, Prostate Problems (Prostate CA), Genitourinary Cancer (Prostate CA) Gastrointestinal: History of: GERD No history of: Gastrointestinal Bleed, Hepatitis, GI Problems Hematology: No history of: Bleeding Problems, Clotting Problems Other: History of: Anaphylaxis, Cancer - Surgical History Cardiac Surgeries: Sugical HX of: Cardiac Catheterization Thoracic Surgeries: Surgical HX of;: Lithotripsy Patient denies;: Lobectomy Abdominal Surgeries: Surgical HX of: Appendectomy, Cholecystectomy Reproductive Surgeries: Surgical HX of;: Prostate Surgery (Biopsy) - Family History Family History: Reports;: Family Diabetes, Family Heart Disease - Social History Smoking Status: Former smoker Frequency of Alcohol Use: None Type of Drug Use: None Marital Status: Lives With:: Spouse Functional capacity: independent ambulation - Constitutional Constitutional: Absent: anorexia, chills, fatigue, fever(s), stops breathing during sleep, weakness, weight gain, weight loss - EENT Eyes: Absent: blurry vision, loss of vision Ears: Absent: decreased hearing Nose, mouth and throat: Absent: dysphagia, nasal congestion, neck pain, vertigo - Cardiovascular Cardiovascular: Absent: chest pain at rest, chest pain with activity, diaphoresis, dyspnea, edema, radiating jaw, neck or arm pain, orthopnea, palpitations, PND - Respiratory Respiratory: Absent: cough, hemoptysis, dyspnea on exertion - Gastrointestinal Gastrointestinal: Absent: abdominal pain, constipation, diarrhea, dysphagia, hematemesis, hematochezia, melena, vomiting - Genitourinary Genitourinary: Absent: dysuria, flank pain, nocturia - Musculoskeletal Musculoskeletal: Present: arthralgias. Absent: limited range of motion, myalgias - Neurological Neurological: Absent: abnormal gait, confusion, dizziness, syncope, tremor(s) - Psychiatric Psychiatric: Present: anxiety. Absent: confusion, depression - Endocrine Endocrine: Absent: cold intolerance, heat intolerance - Hematologic/Lymphatic Hematologic/Lymphatic: Present: easy bleeding. Absent: easy bruising Exam - Constitutional Vitals: Period Temp Pulse Resp BP Sys/May Pulse Ox Last 24 Hr 97.2 F-98.7 F 57-76 12-22 92-144/57-75 95-99 General appearance: no acute distress, over weight - Head Head exam: Present: normal inspection. Absent: abrasion, laceration - Eye Eye exam: Present: EOMI. Absent: periorbital swelling, scleral icterus Pupils: Present: [place]. Absent: dilated, irregular - Respiratory Respiratory exam: Present: clear to auscultation bilaterally. Absent: rales, rhonchi, wheezes - Cardiovascular Cardiovascular exam: Present: regular rate and rhythm. Absent: bradycardia, carotid bruit, JVD, systolic murmur, tachycardia - GI/Abdominal GI/Abdominal exam: Present: normal bowel sounds, soft. Absent: ascites, firm, mass, tenderness - Extremities Exam Extremities exam: Present: normal capillary refill, full ROM. Absent: calf tenderness, edema - Back Exam Back exam: Present: normal inspection - Neurological Exam Neurological exam: Present: alert, oriented X3 - Psychiatric Psychiatric exam: Present: normal affect, normal mood, anxious. Absent: agitated - Skin Skin exam: Present: normal color, warm, dry Results - Labs CBC & BMP: 07/10/17 04:44 07/10/17 04:44 Lab Results: I have reviewed the past 24 hour labs - Diagnostic Findings Procedure: Chest x-ray: image reviewed by me, report reviewed by me (07/08/17: no infiltrate, effusion, or decompensation) Assessment and Plan - Time spent with patient Time spent with patient: Greater than 30 minutes (1) Nonischemic cardiomyopathy Status: Acute Assessment and plan: 72 year old WM, PMHx of HTN, dyslipidemia, CAD, PAF, h/o TIA, chronic LBBB. Now admitted with NSTEMI and is s/p PCI of LAD lesion. Found to have significantly reduced LVEF of 10% but had EF 55% in April per echo. Findings suggestive of nonischemic cardiomyopathy. He has been started on appropriate medical therapy for acutely decompensated cardiomyopathy and heart failure. EKG: SR 60s, occ PAC, LBBB QRS 160 ms. He has underlying CAD, but had no ischemic cardiomyopathy so far. The presentation is more suggestive of stress cardiomyopathy, although, will be difficult to rule out subacute ischemic injury or other, nonischemic etiology. The presentation was not suggestive of true ACS/non-STEMI, per Dr. Javier's findings. -Recommend to resume and titrate the beta-lexis to the maximum tolerated dose. -Resume VLADIMIR inhibitor, once acute kidney injury resolves. -Severe systolic dysfunction, frequent PVCs. Recommend to set up with LifeVest -remote h/o PAF, TIA - recent PCI. No recent A. fib. We can continue dual antiplatelets, follow clinically. If the A. fib recurs, single antiplatelet plus resuming Xarelto is an option. -We may continue amiodarone for now. If no recurrence of the A. fib, we can consider weaning this off, or switching to a lower risk antiarrhythmic. Comorbities limit options -Suggest to follow-up with Dr. Gunter, reassess ejection fraction, after BB and ACEI was resumed. If remains severely depressed, the patient will be a candidate for BOOKKEEPING SERVICE SALES AGENT-D. I would be glad to see him again in clinic in this case -At this time, there is no bradycardia indication for pacing and no sustained ventricular tachyarrhythmia was documented so far Current Visit: Yes (2) Non-ST elevation myocardial infarction (NSTEMI) Status: Acute Assessment and plan: SEE PLAN OF CARE LISTED ABOVE. Current Visit: Yes (3) Left bundle branch block (LBBB) on electrocardiogram Status: Chronic Assessment and plan: SEE PLAN OF CARE LISTED ABOVE. Current Visit: Yes (4) Paroxysmal atrial fibrillation Status: Chronic Assessment and plan: SEE PLAN OF CARE LISTED ABOVE. Current Visit: Yes (5) Dyslipidemia Status: Chronic Assessment and plan: SEE PLAN OF CARE LISTED ABOVE. Current Visit: Yes (6) Hypertension Status: Chronic Assessment and plan: SEE PLAN OF CARE LISTED ABOVE. Current Visit: Yes Qualifiers: Hypertension type: essential hypertension Qualified Code(s): I10 - Essential (primary) hypertension (7) Coronary artery disease Status: Chronic Assessment and plan: SEE PLAN OF CARE LISTED ABOVE. Current Visit: No Qualifiers: Coronary Disease-Associated Artery/Lesion type: [place] artery [place] vs. transplanted heart: [place] heart Associated angina: with unstable angina Qualified Code(s): I25.110 - Atherosclerotic heart disease of [place] coronary artery with unstable angina pectoris Quality Measures - VTE Contraindication to Pharmacological VTE Prophylaxis: High Risk of Bleeding Specialty Discharge - Follow Up or Referrals Beatriz Elliott Attila, MD, personally performed the services described in this documentation, ascribed by Shefali Godoy RN in my presence, and it is both accurate and complete [id number] .
[2017-07-10] MEDS: METOPROLOL SUCCINATE XL 25 MG TABLET PO SCH (17:12)
[2017-07-10] MEDS: CLORAZEPATE 3.75 MG TABLET PO PRN ×2 (17:52→23:47)
[2017-07-10] MEDS: ATORVASTATIN 40 MG TABLET PO SCH (20:17)
[2017-07-10] MEDS: ZALEPLON 5 MG CAPSULE PO PRN (20:18)
[2017-07-11 04:47] LABS: Calcium 8.2 MG/DL (8.5-10.1); Magnesium 1.9 MG/DL (1.8-2.4); Osmolality,Calculated 286.3 MOS/KG (273-304); Potassium 4.5 MMOL/L (3.5-5.1)
[2017-07-11 04:56] LABS: Risk Ratio 4.69; VLDL CHOLESTEROL 31.2 MG/DL
[2017-07-11 05:35] LABS: Basophils # 0.1 10*3/uL (0.0-0.2); Basophils % 0.7 % (0.0-0.8); Eosinophils # 0.2 10*3/uL (0.0-0.87); Eosinophils % 2.2 % (0.00-10.9); Hematocrit 41.4 VOL% (42.0-52.0); Hemoglobin 14.1 GM/DL (14.0-18.0); Immature Granulocytes % 1.5 %; Lymphocytes # 1.8 10*3/uL (1.4-4.0); Lymphocytes % 26.8 % (21.2-54.2); Mean Corpuscular HGB Conc 34.1 GM/DL (32-36); Mean Corpuscular Hemoglobin 33 PG (27-34); Mean Corpuscular Volume 96.3 FL (87-102); Mean Platelet Volume 10.5 FL (9.6-12.0); Monocytes # 0.9 10*3/uL (0.11-0.8); Monocytes % 12.6 % (1.7-12.7); Neutrophils # 3.8 10*3/uL (1.4-7.4); Neutrophils % 56.2 % (38.7-73.9); Platelet Count 147 T/CUMM (130-400); Red Cell Distribution Width 13.5 % (9.3-17.3); White Blood Count 6.7 T/CUMM (4-12)
[2017-07-11] MEDS: CLORAZEPATE 3.75 MG TABLET PO PRN ×2 (08:14→20:51)
[2017-07-11] MEDS: FUROSEMIDE 40 MG/4 ML VIAL IV SCH (08:14)
[2017-07-11] MEDS: ASPIRIN EC 81 MG TABLET PO SCH (08:15)
[2017-07-11] MEDS: CLOPIDOGREL 75 MG TABLET PO SCH (08:15)
[2017-07-11] MEDS: AMIODARONE 200 MG TABLET PO SCH (08:15)
[2017-07-11] MEDS: FAMOTIDINE 20 MG TABLET PO SCH ×2 (08:15→20:51)
[2017-07-11] MEDS: MAGNESIUM OXIDE 400 MG TABLET PO SCH ×2 (08:15→20:51)
[2017-07-11] MEDS: SPIRONOLACTONE 25 MG TABLET PO SCH (08:15)
[2017-07-11] MEDS: LISINOPRIL 20 MG TABLET PO SCH (08:15)
[2017-07-11] MEDS: POTASSIUM CHLORIDE 20 MEQ TABLET PO SCH ×2 (08:15→20:49)
[2017-07-11] MEDS: METOPROLOL SUCCINATE XL 25 MG TABLET PO SCH (08:15)
--- NOTE | 2017-07-11 09:50 | Discharge Summary ---
Specialty Discharge - Follow Up or Referrals Follow up with: Sarah Javier DO [Physician] - 2 Weeks (Follow up appointment with Dr. Javier. ) Discharge Plan - Discharge Medications No Action Lisinopril 20 mg PO DAILY Atorvastatin [Lipitor] 40 mg PO BEDTIME Clopidogrel [Plavix] 75 mg PO DAILY tablet Sertraline [Zoloft] 25 mg PO BEDTIME Metoprolol Succinate Xl [Toprol Xl] 25 mg PO DAILY Famotidine Tab [Pepcid Tab] 20 mg PO BID Amiodarone Tab [Cordarone Tab] 200 mg PO DAILY - Follow Up or Referral Follow Up: Sarah Javier DO [Physician] - 2 Weeks (Follow up appointment with Dr. Javier. ) - Forms/Instructions Instructions: Coronary Artery Disease (GEN), Left Heart Catheterization (DC), Heart Healthy Diet (GEN), Coronary Intravascular Stent Placement (DC) Exam - Constitutional Vitals: Period Temp Pulse Resp BP Sys/May Pulse Ox Last 24 Hr 98.5 F-99.3 F 73-117 12-22 100-137/59-84 94-98 Discharge Results Procedures and tests throughout hospitalization: Pending Orders 07/08/17 19:16 CL heart Stat 07/10/17 04:30 MRSA Surveillence, Inf Control Routine 07/12/17 04:00 Basic Metabolic Panel w/Mg IN AM Comp Blood Count Auto Diff IN AM Labs on day of discharge: Labs from last 24 hours 07/11/17 07/11/17 07/11/17 03:46 03:46 03:46 WBC 6.7 RBC 4.30 Hgb 14.1 Hct 41.4 L MCV 96.3 MCH 33 MCHC 34.1 RDW 13.5 Plt Count 147 MPV 10.5 Neut % (Auto) 56.2 Lymph % (Auto) 26.8 [place] % (Auto) 12.6 Eos % (Auto) 2.2 Baso % (Auto) 0.7 Neut # (Auto) 3.8 Lymph # (Auto) 1.8 [place] # (Auto) 0.9 H Eos # (Auto) 0.2 Baso # (Auto) 0.1 Immature Gran % 1.5 Nucleated RBC % 0.0 Immature Gran # 0.10 Nucleated RBCs # 0.00 Immature Plt Fraction 2.4 Sodium 141 Potassium 4.5 Chloride 106 Carbon Dioxide 28 Anion Gap 11.5 BUN 27 H Creatinine 2.00 H GFR Calculation 42 BUN/Creatinine Ratio 13.00 Glucose 108 H Calculated Osmolality 286.3 Calcium 8.2 L Magnesium 1.9 Triglycerides 156 H Cholesterol 169 LDL Cholesterol 105.0 VLDL Cholesterol 31.2 HDL Cholesterol 36 L Heart Disease Risk Ratio 4.69 DS: Provider Date of admission: 07/08/17 20:56 Primary care physician: . No PCP Attending physician on admission: Sarah Javier DO Consults: 07/08/17 20:56 Consult to Cardiac Rehabilitation [CONS] Routine Reason for Cardiac Rehabilitation: Risk Factor Modification Other Consult Comment: Evaluate and recommend 07/08/17 21:00 Consult to Physician [CONS] Routine Comment: Consulting Provider: Lester Henderson 07/08/17 21:22 Consult to Case Mgmt/Social Srvs [CONS] Routine Reason for Case Mgmt/Social Srvs: Equipment Consult Comment: Life Vest at discharge Discharging clinician: Frank Gee MD Expected date of discharge: 07/11/17
--- NOTE | 2017-07-11 11:46 | Cardiology Progress Note ---
Assessment and Plan (1) Nonischemic cardiomyopathy Status: Acute Assessment and plan: Ejection fraction 10%. He is at high risk of malignant dysrhythmias. He though needs a period of time for reevaluation to see if his EF will return at least to an adequate level. He though may need CRRT/AICD. Current Visit: Yes (2) Non-ST elevation myocardial infarction (NSTEMI) Status: Resolved Assessment and plan: Patient stable post intervention. Current Visit: Yes (3) Left bundle branch block (LBBB) on electrocardiogram Status: Chronic Assessment and plan: This is chronic and unchanged. Current Visit: Yes (4) Paroxysmal atrial fibrillation Status: Chronic Current Visit: Yes (5) Dyslipidemia Status: Chronic Assessment and plan: Continue present therapy with atorvastatin. Current Visit: Yes (6) Hypertension Status: Chronic Assessment and plan: Blood pressure remained stable and lowish at times. This certainly may exacerbate his renal dysfunction. Current Visit: Yes Qualifiers: Hypertension type: essential hypertension Qualified Code(s): I10 - Essential (primary) hypertension (7) Coronary artery disease Status: Chronic Assessment and plan: Post intervention of LAD this time. He did have previous interventions. He is presently stable. Current Visit: No Qualifiers: Coronary Disease-Associated Artery/Lesion type: [place] artery [place] vs. transplanted heart: [place] heart Associated angina: with unstable angina Qualified Code(s): I25.110 - Atherosclerotic heart disease of [place] coronary artery with unstable angina pectoris (8) Renal insufficiency Status: Acute Assessment and plan: This is been somewhat progressive and being potentially related to his ejection fraction as well as his contrast for his PCI as well as blood pressure running somewhat lowish. We will continue to monitor this. Stopping his VLADIMIR inhibitor. Current Visit: Yes Cardiology - PN: Subj Interval history: Patient's yesterday's done fairly well. He has his LifeVest on. He has no complaints of chest pain shortness of breath. He had a fairly uneventful night. Did have a run of nonsustained ventricular tachycardia last night.. His ejection fraction previous note is 10%. He had had intervention of the distal LAD. He is presently stable without chest pain shortness of breath or other symptomatology. He was to go before yesterday i.e. telemetry but no beds were available. The patient continues to be on IV Lasix as well as VLADIMIR inhibitor. His BUN/ creatinine have increased over the last 48 hours. I think were going need to stop the VLADIMIR inhibitor and try to continue his Lasix as a p.o. medication every morning. The patient has ambulated in the ICU/CCU and is doing well. We will continue this on the floor. We will follow-up on his lab work tomorrow and wants to see his renal function improving we will discharge. He must be cautious about IV fluid with his ejection fraction at 10%. Exam (Progress Note) - Constitutional Vitals: Period Temp Pulse Resp BP Sys/May Pulse Ox Last 24 Hr 98.5 F-99.3 F 57-117 12-22 95-137/54-84 94-98 Exam: General: Appears well with no apparent distress. Pleasant and cooperative. Appears comfortable. HEENT: PERRL, normocephalic, atraumatic. Mucous membranes moist. No jaundice noted. Conjunctiva moist and clear, sclerae anicteric Neck: No JVD/HJR, no thyromegaly or lymphadenopathy noted. No carotid bruit appreciated Cardiac: Regular rate and rhythm. No murmur rub or gallop. Lungs: Clear to auscultation without accessory muscle use to assist the respiratory pattern. Oxygen in use via nasal cannula Abdomen: Soft, bowel sounds normoactive. Nontender and nondistended. No abdominal bruit or thrill noted. No masses noted. Musculoskeletal: No fluid collection. Decreased range of motion is noted. Extremities: Right groin soft, free of hematoma or bruit. No clubbing, cyanosis noted. No edema noted. Upper extremity pulses 2+. Lower extremity pulses 2+. Capillary refill less than 3 seconds. No calf tenderness. Skin: No unusual lesions or rashes. No skin breakdown appreciated. Skin is warm and dry. No cyanosis or diaphoresis Neuro: Awake, alert and oriented 3. Moves all extremities well without hemiparesis or paralysis. No essential tremor is appreciated. Result/EKG - Labs CBC & BMP: 07/11/17 03:46 07/11/17 03:46 Lab Results: I have reviewed the past 24 hour labs Labs: Laboratory Results - last 24 hr 07/11/17 07/11/17 07/11/17 03:46 03:46 03:46 WBC 6.7 RBC 4.30 Hgb 14.1 Hct 41.4 L MCV 96.3 MCH 33 MCHC 34.1 RDW 13.5 Plt Count 147 MPV 10.5 Neut % (Auto) 56.2 Lymph % (Auto) 26.8 [place] % (Auto) 12.6 Eos % (Auto) 2.2 Baso % (Auto) 0.7 Neut # (Auto) 3.8 Lymph # (Auto) 1.8 [place] # (Auto) 0.9 H Eos # (Auto) 0.2 Baso # (Auto) 0.1 Immature Gran % 1.5 Nucleated RBC % 0.0 Immature Gran # 0.10 Nucleated RBCs # 0.00 Immature Plt Fraction 2.4 Sodium 141 Potassium 4.5 Chloride 106 Carbon Dioxide 28 Anion Gap 11.5 BUN 27 H Creatinine 2.00 H GFR Calculation 42 BUN/Creatinine Ratio 13.00 Glucose 108 H Calculated Osmolality 286.3 Calcium 8.2 L Magnesium 1.9 Triglycerides 156 H Cholesterol 169 LDL Cholesterol 105.0 VLDL Cholesterol 31.2 HDL Cholesterol 36 L Heart Disease Risk Ratio 4.69 - Impressions Impressions: Telemetry with sinus rhythm with episode of nonsustained ventricular tachycardia. He had a short episode of atrial fibrillation that was self- limiting yesterday p.m. No further episodes today. Quality Measures - VTE Contraindication to Pharmacological VTE Prophylaxis: High Risk of Bleeding Specialty Discharge - Follow Up or Referrals Follow up with: Sarah Javier DO [Physician] - 1 Week (Follow up appointment with Dr. Javier. Will need EKG, CBC, BMP, magnesium)
--- NOTE | 2017-07-11 12:02 | Electrophysiology Progress Not ---
Walt Elliott Vanessa, RN, am scribing for, and in the presence of, Lester Henderson MD 12 :01. Assessment and Plan - Time spent with patient Time spent with patient: Greater than 30 minutes (1) Nonischemic cardiomyopathy Status: Acute Assessment and plan: 72 year old WM, PMHx of HTN, dyslipidemia, CAD, PAF, h/o TIA, chronic LBBB. Now admitted with NSTEMI and is s/p PCI of LAD lesion. Found to have significantly reduced LVEF of 10% but had EF 55% in April per echo. Findings suggestive of nonischemic cardiomyopathy. He has been started on appropriate medical therapy for acutely decompensated cardiomyopathy and heart failure. EKG: SR 60s, occ PAC, LBBB QRS 160 ms. He has underlying CAD, but had no ischemic cardiomyopathy so far. The presentation is more suggestive of stress cardiomyopathy, although, will be difficult to rule out subacute ischemic injury or other, nonischemic etiology. The presentation was not suggestive of true ACS/non-STEMI, per Dr. Javier's findings. -Frequent PVCs, V bigeminy, NSVT. Borderline low BP. Continue current beta lexis dose. Can increase and titrate once BP allows. -Resume VLADIMIR inhibitor, once acute kidney injury resolves. -Severe systolic dysfunction, frequent PVCs. LifeVest placed last night -remote h/o PAF, TIA - recent PCI. No recent A. fib. We can continue dual antiplatelets, follow clinically. If the A. fib recurs, single antiplatelet plus resuming Xarelto is an option. -We may continue amiodarone for now. If no recurrence of the A. fib, we can consider weaning this off, or switching to a lower risk antiarrhythmic. Comorbidities limit options. -Suggest to follow-up with Dr. Javier, reassess ejection fraction, after BB and ACEI was resumed. If remains severely depressed, the patient will be a candidate for EMPLOYEE PLACEMENT SPECIALIST-D. I would be glad to see him again in clinic in this case -At this time, there is no bradycardia or other indication for pacing and no sustained ventricular tachyarrhythmia documented so far. If he develops any of these indications, device may be pursued sooner. Current Visit: Yes (2) Non-ST elevation myocardial infarction (NSTEMI) Status: Resolved Current Visit: Yes (3) Left bundle branch block (LBBB) on electrocardiogram Status: Chronic Current Visit: Yes (4) Paroxysmal atrial fibrillation Status: Chronic Current Visit: Yes (5) Dyslipidemia Status: Chronic Current Visit: Yes (6) Hypertension Status: Chronic Current Visit: Yes Qualifiers: Hypertension type: essential hypertension Qualified Code(s): I10 - Essential (primary) hypertension (7) Coronary artery disease Status: Chronic Current Visit: No Qualifiers: Coronary Disease-Associated Artery/Lesion type: [place] artery [place] vs. transplanted heart: [place] heart Associated angina: with unstable angina Qualified Code(s): I25.110 - Atherosclerotic heart disease of [place] coronary artery with unstable angina pectoris Electrophysiology Subjective Interval history: No acute changes overnight. Resting comfortably this morning. BP stable. Had LifeVest placed yesterday evening. Spoke with patient and this morning. Questions and concerns answered and addressed regarding use of therapy. No chest pain, shortness of breath today. SBP 100-110 mmHg. Tele: SR with HR 70s. Had moderate amount of self limited NSVT last night. Creatinine up to 2.0 this morning. Electrolytes normal. Cell counts stable. Exam - Constitutional Vitals: Period Temp Pulse Resp BP Sys/May Pulse Ox Last 24 Hr 98.5 F-99.3 F 71-117 12-22 100-137/59-84 94-98 Exam: General appearance: no acute distress, over weight. Appears comfortable - Head Head exam: Present: normal inspection. Absent: abrasion, laceration - Eye Eye exam: Present: EOMI. Absent: periorbital swelling, scleral icterus Pupils: Present: [place]. Absent: dilated, irregular - Respiratory Respiratory exam: Present: clear to auscultation bilaterally. Absent: rales, rhonchi, wheezes - Cardiovascular Cardiovascular exam: Present: regular rate and rhythm. Absent: bradycardia, carotid bruit, JVD, systolic murmur, tachycardia - GI/Abdominal GI/Abdominal exam: Present: normal bowel sounds, soft. Absent: ascites, firm, mass, tenderness - Extremities Exam Extremities exam: Present: normal capillary refill, full ROM. Absent: calf tenderness, edema - Back Exam Back exam: Present: normal inspection - Neurological Exam Neurological exam: Present: alert, oriented X3. Grossly intact. No resting tremor. - Psychiatric Psychiatric exam: Present: normal affect, normal mood. Absent: agitated. Not anxious - Skin Skin exam: Present: normal color, warm, dry, intact Results - Labs CBC & BMP: 07/11/17 03:46 07/11/17 03:46 Lab Results: I have reviewed the past 24 hour labs - EKG EKG results: sinus rhythm Quality Measures - VTE Contraindication to Pharmacological VTE Prophylaxis: High Risk of Bleeding Specialty Discharge - Follow Up or Referrals Follow up with: Sarah Javier DO [Physician] - 1 Week (Follow up appointment with Dr. Javier. Will need EKG, CBC, BMP, magnesium) I, Lester Henderson MD, personally performed the services described in this documentation, ascribed by Shefali Godoy RN in my presence, and it is both accurate and complete .
[2017-07-11] MEDS ORDERED: FUROSEMIDE 40 MG TABLET PO SCH (16:00)
[2017-07-11] MEDS: ATORVASTATIN 40 MG TABLET PO SCH (20:49)
[2017-07-12 05:08] LABS: Basophils % 0.3 % (0.0-0.8); Eosinophils # 0.2 10*3/uL (0.0-0.87); Eosinophils % 3.5 % (0.00-10.9); Hematocrit 37.6 VOL% (42.0-52.0); Hemoglobin 13.4 GM/DL (14.0-18.0); Immature Granulocytes % 0.6 %; Immature Granulocytes Absolute 0.04 #; Lymphocytes # 1.4 10*3/uL (1.4-4.0); Lymphocytes % 20.6 % (21.2-54.2); Mean Corpuscular HGB Conc 35.6 GM/DL (32-36); Mean Corpuscular Hemoglobin 33 PG (27-34); Mean Corpuscular Volume 92.2 FL (87-102); Mean Platelet Volume 10.6 FL (9.6-12.0); Monocytes # 0.7 10*3/uL (0.11-0.8); Monocytes % 10.3 % (1.7-12.7); Neutrophils # 4.3 10*3/uL (1.4-7.4); Neutrophils % 64.7 % (38.7-73.9); Platelet Count 150 T/CUMM (130-400); Red Blood Count 4.08 MC/CUMM (3.8-5.5); Red Cell Distribution Width 13.2 % (9.3-17.3); White Blood Count 6.6 T/CUMM (4-12)
[2017-07-12 05:34] LABS: Calcium 8.3 MG/DL (8.5-10.1); Magnesium 2.1 MG/DL (1.8-2.4); Osmolality,Calculated 285.5 MOS/KG (273-304); Potassium 4.7 MMOL/L (3.5-5.1)
[2017-07-12] MEDS ORDERED: FUROSEMIDE 40 MG TABLET PO SCH (09:00)
[2017-07-12] MEDS: CLOPIDOGREL 75 MG TABLET PO SCH (09:08)
[2017-07-12] MEDS: MAGNESIUM OXIDE 400 MG TABLET PO SCH ×2 (09:08→21:53)
[2017-07-12] MEDS: POTASSIUM CHLORIDE 20 MEQ TABLET PO SCH ×2 (09:08→21:53)
[2017-07-12] MEDS: ASPIRIN EC 81 MG TABLET PO SCH (09:09)
[2017-07-12] MEDS: FAMOTIDINE 20 MG TABLET PO SCH ×2 (09:09→21:53)
[2017-07-12] MEDS: METOPROLOL SUCCINATE XL 25 MG TABLET PO SCH (09:09)
[2017-07-12] MEDS: AMIODARONE 200 MG TABLET PO SCH (10:10)
[2017-07-12] MEDS: SPIRONOLACTONE 25 MG TABLET PO SCH (10:48)
--- NOTE | 2017-07-12 14:29 | Cardiology Progress Note ---
Walt Elliott Vanessa, RN, am scribing for, and in the presence of, Frank Gee MD 14:27. Assessment and Plan - Time spent with patient Time spent with patient: Greater than 30 minutes (1) Nonischemic cardiomyopathy Status: Acute Assessment and plan: Ejection fraction 10%. Patient is at very high risk for malignant arrhythmia. Patient will require medical management for a period of time post PCI, and will be reassessed for improvement of cardiomyopathy and heart failure to at minimum an adequate level. He is a candidate and may require TIPPLE OILER-D / AICD in the future. LifeVest at discharge. Patient clinically is doing well. We are monitoring for any evidence of failure. Current Visit: Yes (2) Non-ST elevation myocardial infarction (NSTEMI) Status: Resolved Assessment and plan: He is not having any anginal complaint post PCI. Continue Plavix and low-dose ASA. Current Visit: Yes (3) Left bundle branch block (LBBB) on electrocardiogram Status: Chronic Assessment and plan: This is chronic and stable. Certain this contributes to his heart failure. Current Visit: Yes (4) Paroxysmal atrial fibrillation Status: Chronic Assessment and plan: Sinus rhythm per telemetry monitoring. This remained stable at this time. Current Visit: Yes (5) Dyslipidemia Status: Chronic Assessment and plan: Continue atorvastatin 80 mg by mouth at bedtime nightly. Current Visit: Yes (6) Hypertension Status: Chronic Assessment and plan: Blood pressures are overall stable, have been borderline low at times over the last couple days. Monitoring blood pressure carefully and adjusting medications as needed. Current Visit: Yes Qualifiers: Hypertension type: essential hypertension Qualified Code(s): I10 - Essential (primary) hypertension (7) Coronary artery disease Status: Chronic Assessment and plan: Post percutaneous coronary intervention of LAD lesion this admission. He does have a history of previous PCI. He is not having any anginal complaint. Continue dual antiplatelet therapy with Plavix and low-dose ASA. Continue statin and beta-lexis. VLADIMIR inhibitors and ARBS are avoided currently due to renal dysfunction. Current Visit: No Qualifiers: Coronary Disease-Associated Artery/Lesion type: [place] artery [place] vs. transplanted heart: [place] heart Associated angina: with unstable angina Qualified Code(s): I25.110 - Atherosclerotic heart disease of [place] coronary artery with unstable angina pectoris (8) Renal insufficiency Status: Acute Assessment and plan: Patient has a history of renal insufficiency, but this admission renal dysfunction has been progressive and could potentially be related to severely reduced EF and being status post contrast exposure for PCI in addition to borderline hypotension. We will continue to monitor closely. His VLADIMIR inhibitor has been held. This morning, his creatinine has continued to trend upward and is 2.2. We will hold Lasix and Aldactone this morning. Consult nephrology for further evaluation recommendations. 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 ARANDA SUMMARY: Mr. Burr, 72WM, has risk factors significant for: known CAD, hypertension, and dyslipidemia. History of PAF with chronic LBBB, TIA maintained on Amiodorone. In the past he has been taking Xarelto for stroke prevention but had been off his anticoagulation for a period of time prior to admission peer admitted July 08, 2017 NSTEMI. He was taken to the cardiac catheterization lab Dr. Aranda performed PCI to the distal LAD with LUIS. He tolerated the procedure well without complication. Patient was found to have EF 10%, significant change from the May 03, 2017 echo which revealed EF of 55% . This is a non-ischemic cardiomyopathy given the location of the stenosis. Dr. Henderson, fireworks assembly supervisor, consulted for TIPPLE OILER-D implant. He has evaluated, and at this time patient will need a LifeVest while he is medically managed. LifeVest has been placed. He has some intermittent nonsustained VT but has not required intervention. Acute kidney injury also this admission, and VLADIMIR inhibitors and ARBS are being avoided. 2016: Patient remains in CCU this morning awaiting availability of telemetry bed. No acute distress. He is awake and alert. Patient's is present with him at bedside. Hemodynamic stable overnight. No complaints of chest pain or dyspnea. Has continued to diurese well since transition to PO Lasix yesterday. However, his creatinine has continued to trend up and today is 2.2. Holding Lasix today in addition to Aldactone. Will consult nephrology. Sinus rhythm per environmental monitoring specialist with no ectopy or dysrhythmia this morning. We will continue to monitor and treat patient for cardiomyopathy, heart failure, CKD with acute kidney injury which are currently stable. Patient personally interviewed and examined chart reviewed. Evaluated the patient in the presence of Shefali Godoy RN. I agree with the described information. Patient requested portal is doing generally good as noted. He denies any overt heart failure issues and no significant rhythm issues at this time. He has not had no breakthrough atrial fibrillation or ventricular dysrhythmias. His BUN and creatinine are continuing to increase I suspect this is multifactorial including probably some underlying renal disease as well as having received contrast recently and with his poor cardiac output/ejection fraction. We are asked nephrology to assist us in his renal function. As soon as his renal function stabilizes we will discharge the patient. I am concerned about giving the patient too much fluid with his ejection fraction at 10% and a significant risk of volume overload and failure but if need be we can give some fluid if nephrology feels as necessary at this point. We will try to get the patient to telemetry as soon as possible. ROS: -Denies chest pain -Denies dyspnea -No orthopnea, PND, lower extremity edema Exam (Progress Note) - Constitutional Vitals: Period Temp Pulse Resp BP Sys/May Pulse Ox Last 24 Hr 97.7 F-98.4 F 57-69 14-22 91-141/53-91 90-97 Exam: General: Appears well with no apparent distress. Pleasant and cooperative. Appears comfortable. LifeVest in place HEENT: PERRL, normocephalic, atraumatic. Mucous membranes moist. No jaundice noted. Conjunctiva moist and clear, sclerae anicteric Neck: No JVD/HJR, no thyromegaly or lymphadenopathy noted. No carotid bruit appreciated Cardiac: Regular rate and rhythm. No murmur rub or gallop. No bradycardia or tachycardia. No irregular rhythm. Lungs: Clear to auscultation without accessory muscle use to assist the respiratory pattern. Not requiring supplemental oxygen. Abdomen: Soft, bowel sounds normoactive. Nontender and nondistended. No abdominal bruit or thrill noted. No masses noted. Musculoskeletal: No fluid collection. Decreased range of motion is noted. Extremities: Right groin soft, free of hematoma or bruit. No clubbing, cyanosis noted. No edema noted. Upper extremity pulses 2+. Lower extremity pulses 2+. Capillary refill less than 3 seconds. No calf tenderness. Skin: No unusual lesions or rashes. No skin breakdown appreciated. Skin is warm and dry. No cyanosis or diaphoresis Neuro: Awake, alert and oriented 3. Moves all extremities well without hemiparesis or paralysis. No essential tremor is appreciated. Result/EKG - Labs CBC & BMP: 07/12/17 04:39 07/12/17 04:39 Lab Results: I have reviewed the past 24 hour labs Labs: Laboratory Results - last 24 hr 07/12/17 07/12/17 04:39 04:39 WBC 6.6 RBC 4.08 Hgb 13.4 L Hct 37.6 L MCV 92.2 MCH 33 MCHC 35.6 RDW 13.2 Plt Count 150 MPV 10.6 Neut % (Auto) 64.7 Lymph % (Auto) 20.6 L [place] % (Auto) 10.3 Eos % (Auto) 3.5 Baso % (Auto) 0.3 Neut # (Auto) 4.3 Lymph # (Auto) 1.4 [place] # (Auto) 0.7 Eos # (Auto) 0.2 Baso # (Auto) 0.0 Immature Gran % 0.6 Nucleated RBC % 0.0 Immature Gran # 0.04 Nucleated RBCs # 0.00 Immature Plt Fraction 0.0 Sodium 139 Potassium 4.7 Chloride 105 Carbon Dioxide 26 Anion Gap 12.7 BUN 36 H Creatinine 2.20 H GFR Calculation 37 BUN/Creatinine Ratio 16.00 Glucose 109 H Calculated Osmolality 285.5 Calcium 8.3 L Magnesium 2.1 - Impressions Impressions: Telemetry with sinus rhythm. - EKG EKG results: interpreted by me, no acute changes EKG shows: sinus rhythm Quality Measures - VTE Contraindication to Pharmacological VTE Prophylaxis: High Risk of Bleeding Specialty Discharge - Follow Up or Referrals Follow up with: Sarah rAanda DO [Physician] - 1 Week (Follow up appointment with Dr. Aranda. Will need EKG, CBC, BMP, magnesium) I, Frank Gee MD, personally performed the services described in this documentation, ascribed by Shefali Godoy RN in my presence, and it is both accurate and complete 429 .
--- NOTE | 2017-07-12 15:16 | Nephrology Consult Note ---
History of Present Illness Chief complaint: Increased BUN and creatinine History of present illness: Mr. Burr is a 72 year old male gentleman who was admitted on 07/08/2017 for chest pain and shortness of breath. The patient was felt to have suffered a myocardial infarction and underwent a coronary angiogram that required stent placement. This procedure was done on his day of admission. Patient on admission had a creatinine of 1.5 mg/dL review of lab from a year ago shows that he had some mild renal insufficiency with occasional creatinine of around 1.3 mg/dL. Patient states he had a kidney stone and some obstruction related to that several years ago. Patient states since having his heart surgery he has had some urinary hesitancy and flow issues. The patient has a history of prostate cancer and has previously taken Flomax. Patient denies history of diabetes he does state that he has had high blood pressure and has a history of a stroke in the past. The patient had been on an VLADIMIR inhibitor as well as diuretics up until this admission. ROS: Head -positive headaches ENT - denies sore throat Lymphatics - denies lymphadenopathy Hematology - denies bleeding problems Heart -positive chest pain Lungs -positive shortness of breath Abdomen - denies abdominal pain Musculoskeletal - denies arthritis Skin - denies rash Neurology -positive stroke General - denies fever PE: General: in no acute distress Eyes: Pupils are round and reactive, conjunctivae are clear ENT: Nose is clear, O/P is benign Neck: Supple, no thyromegaly Lymphatics: No cervical, supraclavicular or axillary adenopathy Heart: Regular rate and rhythm, no edema Lungs: Clear to auscultation anteriorly, chest expansion symmetric Abdomen: Soft, normoactive bowel sounds, no hepatomegaly Musculoskeletal: No joint erythema or effusions or joint asymmetry Skin: Normal turgor, normal hydration, no rash Neuro/Psych: Alert and cooperative with fair insight Home Medications Medication Instructions Recorded Confirmed Type Atorvastatin [Lipitor] 40 mg PO BEDTIME 09/12/15 07/11/17 History Lisinopril 20 mg PO DAILY 09/12/15 07/11/17 History Clopidogrel [Plavix] 75 mg PO DAILY tablet 02/22/16 07/11/17 Rx Sertraline [Zoloft] 25 mg PO BEDTIME 05/20/16 07/11/17 History Amiodarone Tab [Cordarone Tab] 200 mg PO DAILY 07/11/17 07/11/17 History Famotidine Tab [Pepcid Tab] 20 mg PO BID 07/11/17 07/11/17 History Metoprolol Succinate Xl [Toprol Xl] 25 mg PO DAILY 07/11/17 07/11/17 History Allergies Allergy/AdvReac Type Severity Reaction Status Date / Time butorphanol [From Stadol] Allergy Unknown SHORTNESS Verified 07/08/17 17:47 OF BREATH Medical,Surgical,& Family Hx - Medical History Cardio: History of: Cardiac Dysrhythmia (PAF), CAD, Hypertension, [place] No history of: PVD Psychological: History of: Anxiety Disorders Neurology: History of: Cerebrovascular Accident No history of: Seizures Endocrine: History of: Dyslipidemia No history of: Diabetes Mellitus (IDDM), Diabetes Mellitus (NIDDM) Respiratory: No history of: COPD, Obstructive Sleep Apnea Genitourinary: History of: Kidney Stones, Prostate Problems (Prostate CA), Genitourinary Cancer (Prostate CA) Gastrointestinal: History of: GERD No history of: Gastrointestinal Bleed, Hepatitis, GI Problems Hematology: No history of: Bleeding Problems, Clotting Problems Other: History of: Anaphylaxis, Cancer - Surgical History Cardiac Surgeries: Sugical HX of: Cardiac Catheterization, Cardiac Surgery ( Stents x2) Thoracic Surgeries: Surgical HX of;: Lithotripsy Patient denies;: Lobectomy Abdominal Surgeries: Surgical HX of: Appendectomy, Cholecystectomy Reproductive Surgeries: Surgical HX of;: Prostate Surgery (Biopsy) - Family History Family History: Reports;: Family Diabetes, Family Heart Disease - Social History Smoking Status: Former smoker Frequency of Alcohol Use: None Type of Drug Use: None Exam - Vital Signs Vital signs: Period Temp Pulse Resp BP Sys/May Pulse Ox Last 24 Hr 97.7 F-98.3 F 57-69 14-22 91-141/54-91 90-97 Results - Labs CBC & BMP: 07/12/17 04:39 07/12/17 04:39 Assessment and Plan (1) Acute kidney injury Status: Acute Assessment and plan: This patient's creatinine is up to 2.2 mg/dL from around 1.5 mg/dL on admission. I suspect this is related to his myocardial infarction as well as contrast injury. We will continue to monitor for improvement. I agree with holding his VLADIMIR inhibitor and diuretics. Current Visit: Yes (2) Anemia Status: Acute Assessment and plan: Patient's hematocrit is 37% Current Visit: Yes (3) Chest pain Status: Chronic Assessment and plan: This has improved since his intervention Current Visit: Yes (4) Hypertension Status: Chronic Assessment and plan: This is controlled Current Visit: Yes Qualifiers: Hypertension type: essential hypertension Qualified Code(s): I10 - Essential (primary) hypertension (5) Non-ST elevation myocardial infarction (NSTEMI) Status: Resolved Assessment and plan: Patient required a percutaneous stent placement, his ejection fraction was noted to be 10% on presentation. Current Visit: Yes (6) History of coronary artery stent placement Status: Chronic Current Visit: No Specialty Discharge - Follow Up or Referrals Follow up with: Sarah Javier DO [Physician] - 1 Week (Follow up appointment with Dr. Javier. Will need EKG, CBC, BMP, magnesium)
[2017-07-12] MEDS: ATORVASTATIN 40 MG TABLET PO SCH (21:53)
[2017-07-12] MEDS: ZALEPLON 5 MG CAPSULE PO PRN (21:53)
[2017-07-12] MEDS: CLORAZEPATE 3.75 MG TABLET PO PRN (21:53)
--- NOTE | 2017-07-13 08:12 | Nephrology Progress Note ---
Nephrology - PN: Subj Interval history: Patient denies shortness of breath. Review of systems GI-he is eating better he denies any nausea or vomiting, he states his urine is flowing well Physical exam general the patient is chronically ill-appearing, he has no pitting edema Assessment/plan 1. Acute renal failure-this patient's creatinine was 2.2 mg/dL yesterday we will follow-up in survey today, his baseline creatinine is been around 1.3 mg/dL the past year 2. Myocardial infarction 3. Coronary artery disease-patient status post stent placement 4. Hypertension this is controlled Exam (PN)-Nephrology - Vital Signs Vital signs: Period Temp Pulse Resp BP Sys/May Pulse Ox Last 24 Hr 97.6 F-98.4 F 59-69 16-22 109-142/61-91 93-99 - Lab 07/12/17 04:39 07/12/17 04:39 Most recent lab results Calcium 8.3 MG/DL (8.5-10.1) L 07/12/17 04:39 Magnesium 2.1 MG/DL (1.8-2.4) 07/12/17 04:39 Assessment and Plan (1) Acute kidney injury Status: Acute Assessment and plan: This patient's creatinine is up to 2.2 mg/dL from around 1.5 mg/dL on admission. I suspect this is related to his myocardial infarction as well as contrast injury. We will continue to monitor for improvement. I agree with holding his VLADIMIR inhibitor and diuretics. Current Visit: Yes (2) Anemia Status: Acute Assessment and plan: Patient's hematocrit is 37% Current Visit: Yes (3) Chest pain Status: Chronic Assessment and plan: This has improved since his intervention Current Visit: Yes (4) Hypertension Status: Chronic Assessment and plan: This is controlled Current Visit: Yes Qualifiers: Hypertension type: essential hypertension Qualified Code(s): I10 - Essential (primary) hypertension (5) Non-ST elevation myocardial infarction (NSTEMI) Status: Resolved Assessment and plan: Patient required a percutaneous stent placement, his ejection fraction was noted to be 10% on presentation. Current Visit: Yes (6) History of coronary artery stent placement Status: Chronic Current Visit: No Specialty Discharge - Follow Up or Referrals Follow up with: Sarah Javier DO [Physician] - 1 Week (Follow up appointment with Dr. Javier. Will need EKG, CBC, BMP, magnesium)
[2017-07-13] MEDS: METOPROLOL SUCCINATE XL 25 MG TABLET PO SCH (09:11)
[2017-07-13] MEDS: AMIODARONE 200 MG TABLET PO SCH (09:11)
[2017-07-13] MEDS: CLOPIDOGREL 75 MG TABLET PO SCH (09:11)
[2017-07-13] MEDS: FAMOTIDINE 20 MG TABLET PO SCH (09:11)
[2017-07-13] MEDS: ASPIRIN EC 81 MG TABLET PO SCH (09:11)
[2017-07-13 09:44] LABS: Calcium 8.5 MG/DL (8.5-10.1); Magnesium 2.2 MG/DL (1.8-2.4); Osmolality,Calculated 283.5 MOS/KG (273-304); Potassium 4.8 MMOL/L (3.5-5.1)
[2017-07-13] MEDS: MAGNESIUM OXIDE 400 MG TABLET PO SCH (11:43)
[2017-07-13] MEDS: POTASSIUM CHLORIDE 20 MEQ TABLET PO SCH (11:43)
[2017-07-13 12:24] VITALS: BP 136/76
--- NOTE | 2017-07-13 13:50 | Discharge Summary ---
Walt Elliott Vanessa, RN, am scribing for, and in the presence of, Frank Gee MD 13:49. Hospital Course - Hospital Course Hospital Course: Mr. Burr, 72 year old WM, PMHx of hypertension, dyslipidemia, CAD, mild CKD. Also has past history of paroxysmal atrial fibrillation with chronic left bundle branch block, and TIA. Anticoagulated with Xarelto in the past but has not taken this in greater than 6 months. He was admitted to [facility] on July 08 with a non-ST elevation NE and experienced post infarct angina. 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 Javier. Underwent percutaneous coronary intervention of the distal LAD with a drug-eluting stent. Moderate coronary artery disease throughout, but previously placed stents in RCA were widely patent with only mild luminal irregularities of the distal vessel. Cardiac cath also demonstrated acutely decompensated nonischemic cardiomyopathy, EF 10%, with a left ventricular EDP 34 mmHg. It is felt that the lesion revascularized would not explain the degree of cardiomyopathy as previous echo in April 2017 demonstrated EF 55%. Post procedure, he was started on diuretic therapy and monitored closely in CCU. Electrophysiology consulted, and Dr. Henderson evaluated for AUTOMATIC LEHR OPERATOR-D therapy. Patient is a candidate but at this time will need to continue to maximize medical therapy. 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 LifeVest has been placed. Patient did have self limited episodes of nonsustained ventricular tachycardia since placement of LifeVest. Blood pressure has not allowed for an increase in beta lexis dose. Patient has not had any atrial fibrillation or tachybrady arrhythmia this admission. Have spoken with patient's daughter regarding use of LifeVest. Questions answered, and she has been provided with telephone number to contact Andres with further questions. Have spoken with [facility] customer engagement representative who will be available to visit patient and his family at home address and questions or concerns. Patient's and daughter voice understanding of this. Upon discharge home, he will need to continue dual antiplatelet therapy with Plavix and low dose aspirin and take without fail. Discussed post cardiac cath restrictions with patient and family. Also discussed the need to gradually increase activity as tolerated, to avoid overexertion, and to reduce overt exposure to stressors. Both patient and his family voice understanding. Of note , patient did have acute kidney injury this admission, and he was kept for additional day of observation and follow up of BMP. Nephrology was consulted. After evaluation, acute kidney injury related to myocardial infarction and contrast exposure. RONNIE has since improved with improvement of creatinine. Due to acute renal insufficiency, VLADIMIR inhibitor and diuretics have been stopped. He can be reevaluated on outpatient basis, and those medications may be able to be reintroduced in the future. Cardiac rehab also saw patient during admission for risk factor modification post NSTEMI and coronary stent. Statin dosage was increased this admit due abnormal lipid panel. At this time, it is felt that patient has reached maximum hospital benefit. He is stable for discharge home today. Will need follow up appointment in clinic with Dr. Javier in 1 week and have EKG, CBC, BMP, magnesium level. Prescriptions will be provided for new and adjusted medications. Patient personally examined and chart reviewed discussed with Shefali Godoy RN. This patient is stable doing well and agree with the assessment and evaluation plan as noted in the chart. Summation and addition the patient was admitted and underwent stent placement distal LAD. He is noted to have a ejection fraction 10% which is a marked diminishment from prior ejection fraction. Patient though is stable and this is probably nonischemic cardiomyopathy and not severely acute and if worse subacute. The patient though did well and then developed some progressive elevation of his creatinine and BUN is probably secondary to his contrast as well as hypoperfusion. This though is not improving. Nephrology was consulted. He felt this time this patient is reached max hospital benefit will be follow-up with Dr. Gunter in 1 week. Medications listed on the chart. ROS: -no chest pain -no dyspnea -no orthopnea, PND - Time spent with patient Time with patient DS: Greater than 30 minutes Diagnosis - Discharge Diagnosis (1) Nonischemic cardiomyopathy Status: Acute (2) Non-ST elevation myocardial infarction (NSTEMI) Status: Resolved (3) Left bundle branch block (LBBB) on electrocardiogram Status: Chronic (4) Paroxysmal atrial fibrillation Status: Chronic (5) Dyslipidemia Status: Chronic (6) Hypertension Status: Chronic (7) Coronary artery disease Status: Chronic (8) Renal insufficiency Status: Acute (9) Acute kidney injury Status: Resolved Specialty Discharge - Follow Up or Referrals Follow up with: Sarah Javier DO [Physician] - 1 Week (Follow up appointment with Dr. Javier. Will need EKG, CBC, BMP, magnesium) Discharge Plan - Discharge Data Disposition: Disch To Home/Self Care Condition at Discharge: Stable Discharge Diet: heart healthy, low fat, low cholesterol, low salt diet Activity: no lifting, other (post cardiac cath instructions) Hygiene: may shower Weight Bearing at Discharge: full weight bearing Driving: not until seen by doctor Contact your physician if you experience:: fever over 101, Difficulty voiding, Redness or swelling, Nausea/Vomiting, Shortness of breath, Bleeding, pain uncontrolled by pain medications - Discharge Medications New Atorvastatin [Lipitor] 80 mg PO BEDTIME #30 tablet Aspirin EC Tab 81 mg PO DAILY #30 tablet Continue Clopidogrel [Plavix] 75 mg PO DAILY tablet Sertraline [Zoloft] 25 mg PO BEDTIME Metoprolol Succinate Xl [Toprol Xl] 25 mg PO DAILY Famotidine Tab [Pepcid Tab] 20 mg PO BID Amiodarone Tab [Cordarone Tab] 200 mg PO DAILY Discontinued Lisinopril 20 mg PO DAILY Atorvastatin [Lipitor] 40 mg PO BEDTIME - Follow Up or Referral Follow Up: Sarah Javier DO [Physician] - 1 Week (Follow up appointment with Dr. Javier. Will need EKG, CBC, BMP, magnesium) - Forms/Instructions Instructions: Coronary Artery Disease (GEN), Left Heart Catheterization (DC), Heart Healthy Diet (GEN), Coronary Intravascular Stent Placement (DC) Exam - Constitutional Vitals: Period Temp Pulse Resp BP Sys/May Pulse Ox Last 24 Hr 97.6 F-98.4 F 59-64 16-21 121-142/61-78 95-99 Exam: General: Appears well with no apparent distress. Pleasant and cooperative. Appears comfortable. Wearing LifeVest HEENT: PERRL, normocephalic, atraumatic. Mucous membranes moist. No jaundice noted. Conjunctiva moist and clear, sclerae anicteric Neck: No JVD/HJR, no thyromegaly or lymphadenopathy noted. No carotid bruit appreciated Cardiac: Regular rate and rhythm. No murmur rub or gallop. No bradycardia or tachycardia. No irregular rhythm. Lungs: Clear to auscultation without accessory muscle use to assist the respiratory pattern. No supplemental oxygen required. No rhonchi, rales, wheeze. Abdomen: Soft, bowel sounds normoactive. Nontender and nondistended. No abdominal bruit or thrill noted. No masses noted. Musculoskeletal: No fluid collection. Decreased range of motion is noted. Extremities: Right groin soft, free of hematoma or bruit. No clubbing, cyanosis noted. No peripheral edema noted. Upper extremity pulses 2+. Lower extremity pulses 2+. Capillary refill less than 3 seconds. No calf tenderness. Skin: No unusual lesions or rashes. No skin breakdown appreciated. Skin is warm, dry, intact. No cyanosis or diaphoresis. Neuro: Awake, alert and oriented 3. Moves all extremities well without hemiparesis or paralysis. No essential tremor is appreciated. Grossly intact. Discharge Results Labs on day of discharge: Labs from last 24 hours 07/13/17 09:14 Sodium 139 Potassium 4.8 Chloride 108 H Carbon Dioxide 28 Anion Gap 7.8 BUN 30 H Creatinine 2.00 H GFR Calculation 42 BUN/Creatinine Ratio 15.00 Glucose 117 H Calculated Osmolality 283.5 Calcium 8.5 Magnesium 2.2 - Imaging and Cardiology Cardiology Procedure: image reviewed by me Procedure: Chest x-ray: image reviewed by me, report reviewed by me DS: Provider Attending physician on admission: Chencho Gee MD Consults: 07/08/17 20:56 Consult to Cardiac Rehabilitation [CONS] Routine Reason for Cardiac Rehabilitation: Risk Factor Modification Other Consult Comment: Evaluate and recommend 07/08/17 21:00 Consult to Physician [CONS] Routine Comment: Consulting Provider: Lester Henderson 07/08/17 21:22 Consult to Case Mgmt/Social Srvs [CONS] Routine Reason for Case Mgmt/Social Srvs: Equipment Consult Comment: Life Vest at discharge 07/12/17 10:47 Consult to Physician [CONS] Routine Comment: Consulting Provider: Frank Gallardo Consult to Specialist Group: Nephrology Person Notified: [email or web address] Date Notified: 07/12/17 Time Notified: 11:00 Discharging clinician: Chencho Gee MD Expected date of discharge: 07/13/17 Gerard Elliott John Timothy, MD, personally performed the services described in this documentation, ascribed by Shefali Godoy RN in my presence, and it is both accurate and complete [id number] .
--- NOTE | 2017-07-19 10:12 | Physician Query Form ---
CLICK EDIT DOCUMENT TO SELECT QUERY ANSWER --> OK --> SIGN Maya Cheung RN, CCDS Certified Clinical Cinder Pitman W) [phone] (f) [phone] [email or web address]: Make your selection(s) from the choices in EACH section by typing an "x" and enter comments in the comment section. Please use your independent medical judgment in providing your response. This request does not imply that any particular answer is desired or expected. CLINICAL INDICATORS: (Providers should not edit this section) The medical record indicates that the patient was admitted for a STEMI, on the : "acutely decompensated cardiomyopathy and heart failure", ----- On the : "denies any overt heart failure issues", only Chest X-ray on the "Stable portable chest", BNP of 158 and the patient was on PO/ IV Lasix. As then attending MD can you please clarify the acuity of the CHF that is mentioned ? Please provide further specificity regarding CHF. ACUITY: ( ) Acute ( ) Chronic ( x) Acute on Chronic ( ) Clinically unable to determine TYPE: ( ) Systolic (HFrEF - heart failure with reduced systolic function/EF) ( ) Diastolic (HFpEF - heart failure with preserved systolic function/EF) ( x) Combined Systolic/Diastolic ( ) Other, please specify: ( ) Clinically unable to determine ( ) Past Medical History of Systolic CHF ( ) Past Medical History of Diastolic CHF ( ) Clinically unable to determine COMMENTS: PLEASE ALSO DOCUMENT RESPONSE IN PROGRESS NOTES AND/OR DISCHARGE SUMMARY Use of terms such as suspected, likely, or probable (associated with a specific diagnosis that is being evaluated, monitored, or treated as if it exists) are acceptable and can be restated in the discharge summary if not ruled out. MTDD
== END 2017-07-13 15:45 | disposition home or self-care (01) | DRG 246 ==
LOC: N.ED 17:40 → N.CL 22:12 → N.CC 22:14 → N.TELES 07-12 16:50
PROVIDERS: ADMIT Internal Medicine Cardiovascular Disease; ATTEND Internal Medicine Cardiovascular Disease
PROC: CLCCHCL (ICD-10-PCS; 2017-07-08 20:15)

== ENCOUNTER 2019-01-06 17:45 | Observation (INO) ==
[2019-01-06 18:11] LABS: Basophils % 0.5 % (0.0-0.8); Eosinophils # 0.3 10*3/uL (0.0-0.87); Eosinophils % 3.9 % (0.00-10.9); Hematocrit 37.1 VOL% (42.0-52.0); Hemoglobin 12.3 GM/DL (14.0-18.0); Immature Granulocytes % 0.5 %; Immature Granulocytes Absolute 0.03 #; Lymphocytes # 1.8 10*3/uL (1.4-4.0); Lymphocytes % 27.7 % (21.2-54.2); Mean Corpuscular HGB Conc 33.2 GM/DL (32-36); Mean Corpuscular Hemoglobin 31 PG (27-34); Mean Corpuscular Volume 94.6 FL (87-102); Mean Platelet Volume 9.8 FL (9.6-12.0); Monocytes # 0.8 10*3/uL (0.11-0.8); Monocytes % 11.9 % (1.7-12.7); Neutrophils # 3.5 10*3/uL (1.4-7.4); Neutrophils % 55.5 % (38.7-73.9); Platelet Count 160 T/CUMM (130-400); Red Blood Count 3.92 MC/CUMM (3.8-5.5); White Blood Count 6.4 T/CUMM (4-12)
[2019-01-06 18:27] LABS: PT Patient Result 10.7 SECS; Partial Thromboplastin Time 26.7 SECS (0-40)
[2019-01-06 18:30] LABS: Alanine Aminotransferase 23 U/L (16-61); Albumin 3.6 G/DL (3.4-5.0); Alkaline Phosphatase 103 U/L (45-117); Aspartate Amino Transferase 15 U/L (0-37); Blood Urea Nitrogen 24 MG/DL (7-18); Calcium 8.3 MG/DL (8.5-10.1); Glucose 83 MG/DL (74-106); Osmolality,Calculated 288.8 MOS/KG (273-304); Potassium 4.3 MMOL/L (3.5-5.1); Sodium 144 MMOL/L (136-145); Troponin I < 0.015 NG/ML (0.00-0.045)
[2019-01-06] MEDS ORDERED: ONDANSETRON 4 MG/2 ML VIAL IV STA (20:37)
[2019-01-06] MEDS ORDERED: LEVOFLOXACIN INJ 500 MG in PREMIX 1 EACH IV STA (20:37)
[2019-01-06] MEDS ORDERED: MORPHINE 4 MG/1 ML VIAL IV STA (20:38)
[2019-01-06] MEDS ORDERED: ONDANSETRON 4 MG/2 ML VIAL IV PRN (20:39)
[2019-01-06] MEDS ORDERED: ACETAMINOPHEN 325 MG TABLET PO PRN (20:39)
[2019-01-06 23:54] LABS: Risk Ratio 4.24; VLDL CHOLESTEROL 23.4 MG/DL
[2019-01-07] MEDS: cefTRIAXone 1,000 MG in SYRINGE 1 EACH IV SCH ×2 (00:24→23:19)
[2019-01-07] MEDS: AZITHROMYCIN INJ 500 MG in SODIUM CHLORIDE 0.9% 250 ML IV SCH ×2 (00:29→23:18)
[2019-01-07] MEDS: ATORVASTATIN 40 MG TABLET PO SCH ×2 (00:29→21:19)
[2019-01-07] MEDS: SERTRALINE 25 MG TABLET PO SCH ×2 (00:30→21:19)
[2019-01-07] MEDS: FAMOTIDINE 20 MG TABLET PO SCH ×3 (00:30→21:19)
[2019-01-07] MEDS ORDERED: MORPHINE 4 MG/1 ML VIAL IV PRN (02:32)
[2019-01-07] MEDS ORDERED: DIAZEPAM 5 MG TABLET PO ONE (07:28)
[2019-01-07] MEDS ORDERED: diphenhydrAMINE CAP 25 MG CAPSULE PO ONE (07:28)
[2019-01-07] MEDS ORDERED: CLOPIDOGREL 300 MG TABLET PO ONE (07:29)
[2019-01-07] MEDS ORDERED: SODIUM CHLORIDE 0.9% 1,000 ML IV SCH (07:30)
[2019-01-07] MEDS ORDERED: HEPARIN/NACL 0.9% 2 UNITS/ML 1,000 ML IV ONE (07:37)
[2019-01-07] MEDS ORDERED: LIDOCAINE 1% 20 ML VIAL ONE (07:37)
[2019-01-07] MEDS: METOPROLOL SUCCINATE XL 25 MG TABLET PO SCH ×2 (07:48→09:56)
[2019-01-07] MEDS: ASPIRIN EC 81 MG TABLET PO SCH ×2 (07:48→09:55)
[2019-01-07] MEDS: PANTOPRAZOLE 40 MG TABLET PO SCH ×2 (07:49→09:56)
[2019-01-07] MEDS ORDERED: ENOXAPARIN 30 MG/0.3 ML SYRINGE ONE (07:51)
[2019-01-07] MEDS ORDERED: ENOXAPARIN 40 MG/0.4 ML SYRINGE ONE (07:53)
[2019-01-07] MEDS ORDERED: fentaNYL 100 MCG/2 ML VIAL ONE (07:59)
[2019-01-07] MEDS ORDERED: MIDAZOLAM 2 MG/2 ML VIAL ONE (07:59)
[2019-01-07] MEDS ORDERED: ENOXAPARIN 40 MG/0.4 ML SYRINGE SUBCUT SCH (09:00)
[2019-01-07] MEDS ORDERED: AMIODARONE 200 MG TABLET PO SCH (09:00)
[2019-01-07 09:03] LABS: Free T4 (Free Thyroxine) 1.11 NG/DL (0.76-1.46); Thyroid Stimulating Hormone 0.247 uIU/ml (0.358-3.74)
[2019-01-07] MEDS: CLOPIDOGREL 75 MG TABLET PO SCH (09:56)
[2019-01-07] MEDS: POTASSIUM CHLORIDE 20 MEQ TABLET PO SCH (11:59)
[2019-01-07] MEDS: FUROSEMIDE 40 MG TABLET PO SCH (12:00)
[2019-01-08 06:13] LABS: Calcium 7.8 MG/DL (8.5-10.1); Osmolality,Calculated 285.1 MOS/KG (273-304); Potassium 4.3 MMOL/L (3.5-5.1)
[2019-01-08 06:16] LABS: Basophils % 0.6 % (0.0-0.8); Eosinophils # 0.2 10*3/uL (0.0-0.87); Hematocrit 34.7 VOL% (42.0-52.0); Hemoglobin 11.3 GM/DL (14.0-18.0); Immature Granulocytes % 0.8 %; Immature Granulocytes Absolute 0.04 #; Lymphocytes # 1.3 10*3/uL (1.4-4.0); Lymphocytes % 25.6 % (21.2-54.2); Mean Corpuscular HGB Conc 32.6 GM/DL (32-36); Mean Corpuscular Hemoglobin 31 PG (27-34); Mean Corpuscular Volume 93.8 FL (87-102); Mean Platelet Volume 10.9 FL (9.6-12.0); Monocytes # 0.5 10*3/uL (0.11-0.8); Monocytes % 10.2 % (1.7-12.7); Neutrophils # 3.1 10*3/uL (1.4-7.4); Neutrophils % 58.8 % (38.7-73.9); Platelet Count 153 T/CUMM (130-400); Red Cell Distribution Width 12.9 % (9.3-17.3); White Blood Count 5.2 T/CUMM (4-12)
[2019-01-08] MEDS: CLOPIDOGREL 75 MG TABLET PO SCH (09:07)
[2019-01-08] MEDS: FAMOTIDINE 20 MG TABLET PO SCH (09:07)
[2019-01-08] MEDS: METOPROLOL SUCCINATE XL 25 MG TABLET PO SCH (09:07)
[2019-01-08] MEDS: ASPIRIN EC 81 MG TABLET PO SCH (09:07)
[2019-01-08] MEDS: PANTOPRAZOLE 40 MG TABLET PO SCH (09:08)
[2019-01-08] MEDS: POTASSIUM CHLORIDE 20 MEQ TABLET PO SCH (09:08)
[2019-01-08] MEDS: FUROSEMIDE 40 MG TABLET PO SCH (09:12)
[2019-01-08] MEDS ORDERED: MAGNESIUM OXIDE 400 MG TABLET PO ONE (10:24)
[2019-01-08 12:17] VITALS: BP 141/73
== END 2019-01-08 13:09 | disposition home or self-care (01) ==
LOC: N.ED 17:45 → N.EDINP 17:45 → SUATTDRO 20:39 → N.TELEN 22:25
PROVIDERS: ADMIT Internal Medicine Nephrology; ATTEND Internal Medicine
PROC: CLCCHCL (ICD-10-PCS; 2019-01-07 08:15)

== ENCOUNTER 2019-11-13 09:18 | Observation (INO) ==
[2019-11-13] MEDS ORDERED: SODIUM CHLORIDE 0.9% 1,000 ML IV STA (10:12)
[2019-11-13] MEDS ORDERED: MAGNESIUM SULF RIDER 2 GM in PREMIX 1 EACH IV STA (10:12)
[2019-11-13 10:20] LABS: Basophils % 0.5 % (0.0-0.8); Eosinophils # 0.1 10*3/uL (0.0-0.87); Eosinophils % 2.4 % (0.00-10.9); Hematocrit 37.7 VOL% (42.0-52.0); Hemoglobin 12.9 GM/DL (14.0-18.0); Immature Granulocytes % 0.3 %; Immature Granulocytes Absolute 0.02 #; Lymphocytes # 1.6 10*3/uL (1.4-4.0); Lymphocytes % 27.7 % (21.2-54.2); Mean Corpuscular HGB Conc 34.2 GM/DL (32-36); Mean Corpuscular Volume 90.4 FL (87-102); Monocytes % 9.1 % (1.7-12.7); Platelet Count 173 T/CUMM (130-400); Red Blood Count 4.17 MC/CUMM (3.8-5.5); Red Cell Distribution Width 13.3 % (9.3-17.3); White Blood Count 5.8 T/CUMM (4-12)
[2019-11-13 10:39] LABS: Bilirubin,Total 0.7 MG/DL (0.2-1.0); Calcium 8.7 MG/DL (8.5-10.1); Osmolality,Calculated 282.3 MOS/KG (273-304); Thyroid Stimulating Hormone 0.007 uIU/ml (0.358-3.74); Total Protein 6.9 G/DL (6.4-8.3)
[2019-11-13 10:44] LABS: Apearance,Urine CLEAR (Clear); Bilirubin,Urine Negative (Negative); Blood, Urine Negative (Negative); Glucose,Urine (UA) Negative (Negative); Ketones,Urine Negative (Negative); Mucus,Urine Occasional /LPF (Occasional); Nitrite,Urine Negative (Negative); Protein,Urine Negative; Urine Color Colorless (Yellow); Urine Specific Gravity 1.004 (1.001-1.035); Urine Urobilinogen < 2.0 EU/DL (0.2-1.0)
[2019-11-13 10:51] LABS: Barbiturates Screen,Urine Negative (Negative); Benzodiazepines Screen,Urine Negative (Negative); Cannabinoid Screen,Urine Negative (Negative); Opiate Screen,Urine Negative (Negative); Phencyclidine Screen,Urine Negative (Negative)
[2019-11-13] MEDS ORDERED: LORazepam 2 MG/1 ML VIAL IV STA (10:59)
[2019-11-13] MEDS ORDERED: LORazepam 2 MG/1 ML VIAL ONE (11:01)
[2019-11-13] MEDS ORDERED: ACETAMINOPHEN 325 MG TABLET PO PRN (12:10)
[2019-11-13] MEDS ORDERED: BISACODYL 5 MG TABLET PO PRN (12:10)
[2019-11-13] MEDS ORDERED: ONDANSETRON 4 MG/2 ML VIAL IV PRN (12:10)
[2019-11-13] MEDS: SODIUM CHLORIDE 0.9% 1,000 ML IV SCH (13:13)
[2019-11-13] MEDS ORDERED: ACETAMINOPHEN 500 MG TABLET PO STA (13:28)
[2019-11-13] MEDS: ATORVASTATIN 80 MG TABLET PO SCH (21:42)
[2019-11-13] MEDS: ENOXAPARIN 40 MG/0.4 ML SYRINGE SUBCUT SCH (21:42)
[2019-11-14 06:24] LABS: Risk Ratio 2.81; VLDL CHOLESTEROL 31.2 MG/DL
[2019-11-14] MEDS: EZETIMIBE 10 MG TABLET PO SCH (09:21)
[2019-11-14] MEDS: ASPIRIN EC 81 MG TABLET PO SCH (09:21)
[2019-11-14] MEDS: METOPROLOL SUCCINATE XL 25 MG TABLET PO SCH (09:21)
[2019-11-14] MEDS: SODIUM CHLORIDE 0.9% 1,000 ML IV SCH (09:21)
[2019-11-14] MEDS: PANTOPRAZOLE 40 MG TABLET PO SCH (09:22)
[2019-11-14] MEDS: ISOSORBIDE MONONITRATE 30 MG TABLET PO SCH (09:22)
[2019-11-14] MEDS: CLOPIDOGREL 75 MG TABLET PO SCH (09:22)
[2019-11-14] MEDS ORDERED: GLUCAGON 1 MG VIAL IM PRN (12:27)
[2019-11-14] MEDS ORDERED: MECLIZINE 25 MG TABLET PO PRN (12:27)
[2019-11-14] MEDS ORDERED: DEXTROSE 10% 25 GM/250 ML BAG IV PRN (12:27)
[2019-11-14] MEDS: ENOXAPARIN 40 MG/0.4 ML SYRINGE SUBCUT SCH (20:41)
[2019-11-14] MEDS: ATORVASTATIN 80 MG TABLET PO SCH (20:41)
[2019-11-14] MEDS ORDERED: SERTRALINE 25 MG TABLET PO SCH (21:00)
[2019-11-15 05:19] LABS: Basophils % 0.4 % (0.0-0.8); Eosinophils # 0.2 10*3/uL (0.0-0.87); Eosinophils % 3.9 % (0.00-10.9); Immature Granulocytes % 0.2 %; Immature Granulocytes Absolute 0.01 #; Lymphocytes # 1.5 10*3/uL (1.4-4.0); Lymphocytes % 32.2 % (21.2-54.2); Mean Corpuscular HGB Conc 33.3 GM/DL (32-36); Mean Corpuscular Volume 91.7 FL (87-102); Mean Platelet Volume 9.9 FL (9.6-12.0); Monocytes % 9.5 % (1.7-12.7); Neutrophils % 53.8 % (38.7-73.9); Platelet Count 133 T/CUMM (130-400); Red Cell Distribution Width 13.4 % (9.3-17.3); White Blood Count 4.6 T/CUMM (4-12)
[2019-11-15 05:53] LABS: Calcium 8.4 MG/DL (8.5-10.1); Osmolality,Calculated 283.1 MOS/KG (273-304)
[2019-11-15] MEDS ORDERED: LIDOCAINE 1%/EPI INJ 20 ML VIAL ONE (06:22)
[2019-11-15] MEDS ORDERED: TISSUE ADHESIVE 1 EACH APPLICATOR TOP ONE ×2 (06:22→07:15)
[2019-11-15] MEDS ORDERED: LIDOCAINE 1%/EPI INJ 20 ML VIAL INFILTRAT ONE (07:13)
[2019-11-15] MEDS: EZETIMIBE 10 MG TABLET PO SCH (09:32)
[2019-11-15] MEDS: ASPIRIN EC 81 MG TABLET PO SCH (09:33)
[2019-11-15] MEDS: CLOPIDOGREL 75 MG TABLET PO SCH (09:33)
[2019-11-15] MEDS: ISOSORBIDE MONONITRATE 30 MG TABLET PO SCH (09:33)
[2019-11-15] MEDS: PANTOPRAZOLE 40 MG TABLET PO SCH (09:33)
[2019-11-15] MEDS: METOPROLOL SUCCINATE XL 25 MG TABLET PO SCH (09:34)
[2019-11-15 11:55] VITALS: BP 144/68
== END 2019-11-15 14:36 | disposition home or self-care (01) ==
LOC: N.EDINP 09:18 → N.ED 09:18 → N.TELEN 15:12
PROVIDERS: ADMIT Internal Medicine; ATTEND Internal Medicine